=== PATIENT | female | born 1960 | race Caucasian/White ===

== ENCOUNTER 2021-09-21 17:04 | Observation (INO) | payer MEDICAID, SELFPAY ==
[2021-09-21] VITALS (8 sets, daily range): BP systolic 97–147; BP diastolic 57–86; PULSE 59–75; RESP 16–18; TEMP 36.6–36.8; O2SAT 96–99; BMI 40.2; BMI 43.8
--- NOTE | 2021-09-21 17:37 | CTR_ITS ---
PROCEDURE INFORMATION: Exam: CT Head Without Contrast Exam date and time: 09/21/2021 5:59 PM Age: 61 years old Clinical indication: Other: Near syncope TECHNIQUE: Imaging protocol: Computed tomography of the head without contrast. Radiation optimization: All CT scans at this facility use at least one of these dose optimization techniques: automated exposure control; mA and/or kV adjustment per patient size (includes targeted exams where dose is matched to clinical indication); or iterative reconstruction. COMPARISON: No relevant prior studies available. RADIATION DOSE METRICS: Total DLP (mGy-cm): 964.19 FINDINGS: Brain: Mild periventricular white matter chronic microvascular changes are noted. No hemorrhage or evidence of acute infarction. Cerebral ventricles: No ventriculomegaly. Paranasal sinuses: Visualized sinuses are unremarkable. No fluid levels. Mastoid air cells: Left mastoiditis is noted. Bones/joints: Unremarkable. No acute fracture. Soft tissues: Unremarkable. CT/CT head wo con* [id number] IMPRESSION: 1. No acute intracranial abnormality. 2. Left mastoiditis.
--- NOTE | 2021-09-21 17:37 | ECG_ITS ---
[facility] Test Date: 2021-09-21 Pat Name: Skylar Metcalf Department: Room: Gender: Female Supervisor Claims: : 1960 Requested By: Brenton Prescott Order Number: [id number] Manrique MD: Navid Valderrama M.D. Measurements Intervals [place] Rate: 54 P: 56 NM: 161 QRS: 81 QRSD: 86 T: 53 QT: 434 QTc: 412 Interpretive Statements SINUS BRADYCARDIA No previous ECG available for comparison Electronically Signed On 09-21-2021 22:46:51 CDT by Navid Valderrama M.D. [id number]
--- NOTE | 2021-09-21 17:39 | W.ED.GENADLT ---
HPI - General Adult General: Chief complaint: General Medical Stated complaint: weakness, passed out Time Seen by Provider: 09/21/21 17:06 History of Present Illness: HPI: [61]yo patient w/ hx of DVT on eliquis, non-hodgkin's lymphoma in remission, prior uterine cancer presenting after an episode of syncope lasting for 3-5 minutes about 45 minutes ago. Patient was holding her dog and johnson outside when she almost passed out. The incident was witnessed by the patient?s daughter denies patient had any LOC. Patient was noted to be intermittently lightheaded. Patient was also observed to be very pale. Patient tells me that she has a history of recurrent lightheadedness but this is the worst episode that she has had in a long time. Patient reports multiple episode of lightheadedness earlier this week. Patient could not recall the incident but denies any post-ictal confusion, tongue biting or bladder/bowel incontinence. Patient denies any prior hx of syncope in the past. No associated symptoms of chest pain, shortness of breath, palpitations or focal weakness right before the incident. No family hx of sudden cardiac or unexplained . Onset: 45 minutes ago Duration: ongoing Location: streets Severity: moderate Associated symptoms: Deny chest pain, dyspnea, nausea, rash, palpitations or vomiting Review of Systems Const: Denies: fever(s) or chills Eyes: Denies: change in vision ENMT: Denies: mouth pain Card: Denies: chest pain or palpitations Resp: Denies: dyspnea or non-productive cough GI: Denies: abdominal pain, nausea, vomiting or diarrhea : Denies: dysuria Musc: Denies: extremity pain Skin/Breast: Denies: rash or new lesions Neuro: Reports: other (+light-headedness); Denies: weakness in extremities Psych: Reports: other (Normal mood) Damien/Lymph: Denies: easy bruising PFSH ED PFSH: Medical History DVT (deep venous thrombosis) Dyslipidemia HTN (hypertension) Non-Hodgkin lymphoma Uterine cancer Surgical History S/P cholecystectomy Family History Other Unknown if patient has history of cardiac disorders Social History Smoking and tobacco status: current every day smoker Alcohol intake: never Substance/Drug Use: current Other substance/drug use details: +marijuana Physical Exam Const: COMMON NORMALS: alert HENMT: COMMON NORMALS: atraumatic HEAD & SCALP: atraumatic MOUTH: moist mucous membranes not abnormal Eye: COMMON NORMALS: EOMs intact bilaterally and conjunctivae normal CONJUNCTIVA: Yes conjunctivae normal Neck/C-Spine: COMMON NORMALS: full ROM and supple Resp: COMMON NORMALS: normal respiratory effort and clear to auscultation bilaterally AUSCULTATION: clear to auscultation bilaterally Cardio: COMMON NORMALS: regular rate RATE: regular rate GI: COMMON NORMALS: Soft to palpation and non-tender PALPATION: Yes Soft to palpation Extremity: COMMON NORMALS: full ROM Neuro: SENSORIUM/ORIENTATION: Yes alert MOTOR EXAM: No Abnormal motor strength present and Other motor observations present (no focal motor deficits) OTHER: Mental status? Awake, alert, and oriented to self, year, month, location, and situation.? Following simple axial and appendicular commands.? Has appropriate fund of knowledge, comprehension, and insight.? Able to recall and understands pertinent aspects of medical history and current treatment status.? ? Language? Speech is fluent without word-finding difficulties.? Intact naming, expression, healthcare receptionist, and repetition.? ? Cranial nerves? 2,3,4,6: PERRL, EOMI with no nystagmus. 5: Intact sensation to light touch, symmetric? 7: Smile symmetrical, no facial droop.? 8: Hearing grossly intact.? 9,10: Normal palate movement.? 11: Normal strength in trapezius bilaterally 12: Tongue protrudes midline.? ? Motor examination? Normal bulk & tone. Strength as follows (R/L): Delts (5/5), Biceps (5/5), Triceps (5/5), Wrist ext (5/5), hip flexors (5/5), plantarflexors (5/5), dorsiflexors (5/5). Sensation? Light Touch: Grossly intact and equal in upper and lower extremities bilaterally? Romberg: Negative.? Distal joint position sense intact ? Coordination? Dgtgma-gc-ixvh-finger movements intact without dysmetria or past-pointing.? Rapid fingertaps: preserved amplitude without decriment.? No tremor, myoclonus or truncal ataxia.? ? Gait/stance? Steady, normal narrow base gait with appropriate arm swing and turning.? Tandem gait without hesitation or loss of balance. Psych: COMMON NORMALS: speech normal SPEECH: Yes normal speech MOOD & AFFECT: Yes euthymic mood Course Vital Signs: Vital signs: Vital Signs Temperature 97.6 F 09/22/21 07:08 Pulse Rate 69 09/22/21 07:33 Respiratory Rate 16 09/22/21 07:33 Blood Pressure 120/75 09/22/21 07:08 Pulse Oximetry 94 09/22/21 07:33 MDM - General Adult Medical Decision Making [61]yo patient w/ hx of DVt on eliquis, non-hodgkin's lymphoma in remission presenting to the ED with Syncope. No association with chest pain, dyspnea, palpitations, or focal neurological deficits. HDS Neuro intact. Fingerstick wnl. Given history, exam and workup, presentation not consistent with seizures given a short time course, no postictal state, no seizure activity. Low suspicion for acute neurologic catastrophes to include ICH given lack of trauma, risk factors for bleeding diathesis, or neurogenic causes of syncope. Low suspicion for vascular catastrophes to include PE, thoracic aortic dissection, AAA rupture. Workup: EKGx 2, CBC, BMP, Troponin x 2, CT head Intervention: IVF, Serial reevaluation, telemetry, PO challenge Findings: EKG: No e/o STEMI. No evidence of Brugada?s sign, delta wave, epsilon wave, significantly prolonged QTc, HOCM or malignant arrhythmia. [8:15pm] part within normal limit. EKG with nonischemic. Patient received 1 L of NS. Patient continues to have intermittent lightheadedness. CT head negative for any acute finding. Given the prolonged duration of the neuro syncope episode and increased frequency of recurrent syncope x1 week, patient will be admitted to hospital for structural cardiac evaluation / cardiac monitoring. Disposition: admission for structural cardiac evaluation Lab Data : 09/22/21 03:05 09/22/21 03:[address] 09/21/21 17:37 IMPRESSION: 1. No acute intracranial abnormality. 2. Left mastoiditis. Laboratory Results WBC 7.1 10^3/uL (4.0-10.0) 09/21/21 18: RBC 4.24 10^6/uL (4.1-5.3) 09/21/21 18: Hgb 12.4 g/dL (11.5-15.3) 09/21/21 18: Hct 39.5 % (37.0-47.0) 09/21/21 18: MCV 93.2 fl (81-99) 09/21/21 18: MCH 29.2 pg (28.0-34.0) 09/21/21 18: MCHC 31.4 g/dL (30.0-36.0) 09/21/21: RDW 12.1 % (12.1-15.1) 09/21/21 18: Plt Count 183 10^3/cmm (130-400) 09/21/21 18: MPV 10.1 fL (7.4-10.4) 09/21/21 18: Neut % (Auto) 64.1 % 09/21/21 18: Lymph % (Auto) 23.5 % 09/21/21 18: [place] % (Auto) 10.6 % 09/21/21 18: Eos % (Auto) 0.8 % 09/21/21 18: Baso % (Auto) 0.7 % 09/21/21 18: Neut # (Auto) 4.57 10^3/uL (1.8-7.7) 09/21/21 18: Lymph # (Auto) 1.7 10^3/uL (0.8-4.8) 09/21/21 18: [place] # (Auto) 0.8 10^3/uL (0.2-0.9) 09/21/21 18: Eos # (Auto) 0.1 10^3/uL (0.0-0.8) 09/21/21 18: Baso # (Auto) 0.1 10^3/uL (0.0-0.1) 09/21/21 18: Nucleated RBC % (auto) 0 % 09/21/21 18: Nucleated RBCs # 0.0 /100WBC 09/21/21 18:26 Sodium 140 mmol/L (136-145) 09/21/21 19:18 Potassium 4.2 mmol/L (3.5-5.1) 09/21/21 19:18 Chloride 105 mmol/L (98-107) 09/21/21 19:18 Carbon Dioxide 25 mmol/L (22-29) 09/21/21 19:18 Anion Gap 14.2 (5-19) 09/21/21 19:18 BUN 18 mg/dL (8-23) 09/21/21 19:18 Creatinine 1.0 mg/dL (0.5-0.9) H 09/21/21 19:18 GFR Calculation 56.2 mL/min (90-130) L 09/21/21 19:18 Glucose 103 mg/dL (65-115) 09/21/21 19:18 Calculated Osmolality 292 mOsm/kg (285-295) 09/21/21 19:18 Calcium 9.2 mg/dL (8.5-10.5) 09/21/21 19:18 Total Bilirubin 0.4 mg/dL (0.15-1.2) 09/21/21 19:18 AST 13 U/L (0-32) 09/21/21 19:18 ALT 10 U/L (0-33) 09/21/21 19:18 Alkaline Phosphatase 98 IU/L (35-105) 09/21/21 19:18 Troponin T Baseline 8 ng/L (0-10) 09/21/21 18:26 Troponin T 120 Minute 8.16 ng/L (0-10) 09/21/21 20:20 Delta Troponin T Not Reportable 09/21/21 20:20 Total Protein 6.0 g/dL (6.6-8.7) L 09/21/21 19:18 Albumin 4.3 g/dL (3.5-5.2) 09/21/21 19:18 Globulin 1.7 g/dL (1.3-4.6) 09/21/21 19:18 Lipase 29 U/L (13-60) 09/21/21 19:18 TSH 1.09 uIU/mL (0.27-4.20) 09/21/21 20:20 Imaging Data Other Imaging: Radiologist's impression: [address] [place] [address] CT Scan Report Signed Patient: Skylar Metcalf Unit #: [id number] : 1960 Age/Sex: 61 / F ADM Date: 09/21/21 Loc: ER Room/Bed: Attending Dr: Ordering Provider/Ordering MD: Brenton Prescott MD Date of Service: 09/21/21 Procedure(s): CT head wo con* [id number] Accession Number(s): [id number] Report Number: [id number] PROCEDURE INFORMATION: Exam: CT Head Without Contrast Exam date and time: 09/21/2021 5:59 PM Age: 61 years old Clinical indication: Other: Near syncope TECHNIQUE: Imaging protocol: Computed tomography of the head without contrast. Radiation optimization: All CT scans at this facility use at least one of these dose optimization techniques: automated exposure control; mA and/or kV adjustment per patient size (includes targeted exams where dose is matched to clinical indication); or iterative reconstruction. COMPARISON: No relevant prior studies available. RADIATION DOSE METRICS: Total DLP (mGy-cm): 964.19 FINDINGS: Brain: Mild periventricular white matter chronic microvascular changes are noted. No hemorrhage or evidence of acute infarction. Cerebral ventricles: No ventriculomegaly. Paranasal sinuses: Visualized sinuses are unremarkable. No fluid levels. Mastoid air cells:? Left mastoiditis is noted. Bones/joints: Unremarkable. No acute fracture. Soft tissues: Unremarkable. CT/CT head wo con* [id number] IMPRESSION:? 1. No acute intracranial abnormality. 2. Left mastoiditis. ? Dictated By: Chris Agosto MD Signed By: Chris Agosto MD Signed Date/Time: 09/21/21 1843 DD/ 1759 Discharge Plan Discharge Patient Disposition: Admitted As Inpatient Admit Provider: Elvin Lujan Clinical Impression: Light headedness Condition: Stable Coding Level of Care Code ED Recycling Crew Supervisor for Chg Fwd Exam Comprehensive
[2021-09-21] MEDS: sodium chloride 0.9% 1,000 ML 999 ML IV (18:09)
--- NOTE | 2021-09-21 18:09 | PC.PHAR ---
pt pharmacy is closed, pt is unable to verify many medications and guessed on her strengths and dosing. Patient's friend was able to verify some medications as well.
[2021-09-21 18:31] LABS: Basophils # 0.1 10^3/uL (0.0-0.1); Basophils % 0.7 %; Eosinophils # 0.1 10^3/uL (0.0-0.8); Eosinophils % 0.8 %; Hematocrit 39.5 % (37.0-47.0); Hemoglobin 12.4 g/dL (11.5-15.3); Lymphocytes # 1.7 10^3/uL (0.8-4.8); Lymphocytes % 23.5 %; Mean Corpuscular HGB Conc 31.4 g/dL (30.0-36.0); Mean Corpuscular Hemoglobin 29.2 pg (28.0-34.0); Mean Corpuscular Volume 93.2 fl (81-99); Mean Platelet Volume 10.1 fL (7.4-10.4); Monocytes # 0.8 10^3/uL (0.2-0.9); Monocytes % 10.6 %; Neutrophils # 4.57 10^3/uL (1.8-7.7); Neutrophils % 64.1 %; Nucleated Red Blood Cells % 0 %; Platelet Count 183 10^3/cmm (130-400); Red Blood Count 4.24 10^6/uL (4.1-5.3); Red Cell Distribution Width 12.1 % (12.1-15.1); White Blood Count 7.1 10^3/uL (4.0-10.0)
[2021-09-21 18:49] LABS: Troponin(5th) Baseline 8 ng/L (0-10)
--- NOTE | 2021-09-21 19:37 | ECG_ITS ---
[facility] Test Date: 2021-09-21 Pat Name: Skylar Metcalf Department: Room: Gender: Female Neonatal Social Worker: : 1960 Requested By: Brenton Prescott Order Number: [id number] Burton MD: Navid Valderrama M.D. Measurements Intervals [place] Rate: 56 P: 62 TN: 154 QRS: 69 QRSD: 82 T: 50 QT: 418 QTc: 405 Interpretive Statements SINUS BRADYCARDIA Compared to ECG 09/21/2021 18:37:50 No significant changes Electronically Signed On 09-21-2021 22:50:43 CDT by Navid Valderrama M.D. [id number]
[2021-09-21 19:43] LABS: Alanine Aminotransferase 10 U/L (0-33); Albumin Level 4.3 g/dL (3.5-5.2); Alkaline Phosphatase 98 IU/L (35-105); Anion Gap 14.2 (5-19); Aspartate Amino Transferase 13 U/L (0-32); Blood Urea Nitrogen 18 mg/dL (8-23); Calcium 9.2 mg/dL (8.5-10.5); Carbon Dioxide 25 mmol/L (22-29); Chloride 105 mmol/L (98-107); Globulin 1.7 g/dL (1.3-4.6); Glomerular Filtration Rate 56.2 mL/min (90-130); Glucose 103 mg/dL (65-115); Lipase 29 U/L (13-60); Osmolality Calculated 292 mOsm/kg (285-295); Potassium 4.2 mmol/L (3.5-5.1); Sodium 140 mmol/L (136-145); Total Bilirubin 0.4 mg/dL (0.15-1.2)
--- NOTE | 2021-09-21 20:23 | P.HP_ITS ---
Providers/Chief Complaint Chief Complaint: weakness, passed out History of Present Illness Skylar Metcalf is a 61 year old female who carries history of uterine cancer, non- Hodgkin's lymphoma currently in remission, active smoker, presented for recurrent episodes of presyncopal events. Patient is stating that since her cancer treatment she has been experiencing dizzy spells for quite some time, her dizzy spells are not new, today she was having barbecue with her family outside when he started noticing tinnitus, tunnel vision, heaviness and lightheadedness while she was sitting, she did not pass out, she experienced sweating as well, she did not experience any chest pain, shortness of breath, nausea or vomiting. Her symptoms persisted for about 3 to 4 minutes. She did not experience any strokelike features. Because of the symptoms she decided to come to the hospital for further evaluation Patient is stating that she can always tell when she is about to get the symptoms, she is endorsing tinnitus without headaches & weight loss which is intentional, sometimes her dizziness gets worse with change of head position but at this symptom is not persistent. She also describes her dizziness as lightheadedness. She never had any Holter monitoring done in the past, no history of coronary disease MA or CHF. No history of A. fib or tachyarrhythmias. She does take metoprolol for her hypertension, she carries history of DVT which she takes Eliquis. At the time of my evaluation NIH 0, she is afebrile, hemodynamically stable, no signs of dizziness, she is about to eat her dinner, blood pressure systolic 122 heart rate fluctuated between 58-66/min, sinus rhythm, Hospital service was requested to evaluate her for bradycardia for presyncopal events He has already received fluids, will do orthostatics anyhow Requested echo and carotid Doppler Cardiac monitoring overnight Review of Systems Const: Denies: fever(s) Eyes: Denies: change in vision ENMT: Denies: throat pain Card: Denies: chest pain Resp: Denies: dyspnea GI: Denies: abdominal pain : Denies: flank pain Musc: Denies: neck pain Skin/Breast: Denies: rash Neuro: Reports: dizziness Psych: Denies: anxiety Endo: Denies: polyuria Damien/Lymph: Denies: easy bruising All/Imm: Denies: urticaria Medications/Allergies Home Medications Medication Instructions Recorded Confirmed Last Taken Type albuterol sulfate 90 mcg/actuation 2 puff INHALATION QID PRN 09/21/21 09/21/21 Unknown History aerosol inhaler amlodipine 10 mg tablet 10 mg PO DAILY 09/21/21 09/21/21 09/21/21 History apixaban 5 mg tablet (Eliquis) 5 mg PO BID 09/21/21 09/21/21 09/21/21 History atorvastatin 20 mg tablet 20 mg PO DAILY 09/21/21 09/21/21 09/21/21 History ipratropium 20 mcg-albuterol 100 1 puff INHALATION DAILY 09/21/21 09/21/21 09/21/21 History mcg/actuation mist for inhalation (Combivent Respimat) ipratropium bromide 17 1 puff INHALATION QID PRN 09/21/21 09/21/21 Unknown History mcg/actuation HFA aerosol inhaler lorazepam 1 mg tablet 1 mg PO DAILY PRN 09/21/21 09/21/21 Unknown History losartan 25 mg tablet 25 mg PO DAILY 09/21/21 09/21/21 09/21/21 History metoprolol tartrate 50 mg tablet 50 mg PO BID 09/21/21 09/21/21 09/21/21 History omeprazole 20 mg capsule,delayed 20 mg PO BID 09/21/21 09/21/21 09/21/21 History release Allergies Allergy/AdvReac Type Severity Reaction Status Date / Time bee venom protein (honey bee) Allergy ALGY-Anaphy Verified 09/21/21 17:16 laxis morphine Allergy ADR-Vomitin Verified 09/21/21 17:15 g Penicillins Allergy Unknown Verified 09/21/21 17:16 PFSH Acute PFSH: Medical History DVT (deep venous thrombosis) Dyslipidemia HTN (hypertension) Non-Hodgkin lymphoma Uterine cancer Surgical History S/P cholecystectomy Family History Other Unknown if patient has history of cardiac disorders Social History Smoking and tobacco status: current every day smoker Alcohol intake: never Substance/Drug Use: current Other substance/drug use details: +marijuana Vitals/I&O/Wt Last Vital Signs Temp 98.2 F 09/21/21 17:52 Pulse 60 09/21/21 18:45 Resp 16 09/21/21 18:45 BP 125/61 09/21/21 18:45 Pulse Ox 96 09/21/21 18:45 Weight last 48 hrs Weight 99.79 kg Physical Exam Narrative: Very pleasant cooperative female No acute distress S1, S2 sinus bradycardia Saturating well on room air Afebrile Abdomen soft no tenderness No signs of edema No signs of heart failure No audible stridor or wheezing Saturating well on room air EOMI, PERRLA Data : 09/21/21 18:26 09/21/21 19:18 A&P Assessment and plan (1) Pre-syncope: Status: Acute (2) Light headedness: Status: Acute (3) Tinnitus: Status: Acute (4) DVT (deep venous thrombosis): Status: Acute Plan Presyncope Patient describing her dizziness as lightheadedness Cardiac monitoring overnight Currently she is in sinus rhythm, bradycardia noted Might need Holter monitoring at the time of discharge Check electrolytes, magnesium, TSH Echo and carotid Doppler in the morning NIH 0 She is also endorsing tinnitus, intentional weight loss, M?ni?re's disease? Full code Cardiac diet She has history of DVT for which she takes Eliquis I will hold her metoprolol for now for her bradycardia Hypertension: Currently she is normotensive Am anticipating she will be able to get discharged within the next 24 hours Non-Hodgkin's lymphoma in remission I will request records from [facility] She has recently moved to [place] in June Person to be notified from the family, adair [phone] Attestations Medical Necessity Statement*: Anticipating discharge within 48 hours need work-up for presyncopal events Time Spent in Patient Care: 40mins Coding Level of Care Code Acute Refrigeration Unit Repairer for Jeannette Vela Diagnoses Pre-syncope R55 Light headedness R42 Tinnitus H93.19 DVT (deep venous thrombosis) I82.409
[2021-09-21 20:51] LABS: Troponin 5 2HR 8.16 ng/L (0-10)
[2021-09-21] MEDS: sodium chloride 0.9% 1,000 ML 75 ML IV (21:36)
[2021-09-21 22:24] LABS: Thyroid Stimulating Hormone 1.09 uIU/mL (0.27-4.20)
[2021-09-21] MEDS: fixodent 39 gm Tube 1 APPLIC DENTAL (22:58)
[2021-09-22] VITALS (11 sets, daily range): BP systolic 87–140; BP diastolic 62–82; PULSE 58–87; RESP 16–18; TEMP 36.4–36.8; O2SAT 93–96
--- NOTE | 2021-09-22 00:02 | USCV_ITS ---
Metcalf Skylar Age: 61 Gender: F : 1960 Exam Date: 09/22/2021 05:52 Ordering Phys: Elvin Lujan MD Technologist: ESTELLA [place] [facility] [place]: SYNCOPE BP: 134 / 78 HR: 60 Rhythm: Sinus Technical Quality: Adequate MEASUREMENTS (Male / Female) Normal Values 2D ECHO LV Diastolic Diameter PLAX 5.1 cm 4.2 - 5.9 / 3.9 - 5.3 cm LV Systolic Diameter PLAX 3.8 cm IVS Diastolic Thickness 1.1 cm 0.6 - 1.0 / 0.6 - 0.9 cm IVS Systolic Thickness 1.1 cm LVPW Diastolic Thickness 1.0 cm 0.6 - 1.0 / 0.6 - 0.9 cm LVPW Systolic Thickness 1.5 cm RV Chamber Size 2.7 cm LVOT Diameter 2.0 cm LV Ejection Fraction 2D Teich 50.9 % LV Ejection Fraction MOD 2C 59.6 % LV Ejection Fraction 2C AL 60.5 % LA Diameter 3.2 cm LA Width 3.3 cm LA Height 4.5 cm RA Width 3.2 cm RA Height 3.9 cm Aorta at Sinotubular Diameter 2.5 cm IVC Diameter 1.3 cm M-MODE Aortic Annulus Diameter 2.7 cm LA Ao Ratio MM 1.1 MV E Point Septal Separation 0.5 cm DOPPLER AV Peak Velocity 150.0 cm/s LVOT Peak Velocity 131.0 cm/s AV Area Cont Eq vti 2.6 cm squared AV Area Cont Eq pk 2.8 cm squared MV Area PHT 4.1 cm squared Mitral E to A Ratio 1.2 MV E' Velocity 56.5 cm/s Mitral E to MV E' Ratio 8.2 Mitral E to LV E' Lateral Ratio 9.3 Mitral E to LV E' Septal Ratio 7.4 TV Peak E Velocity 49.0 cm/s Right Atrial Pressure 3.0 mmHg PV Peak Velocity 101.0 cm/s RV Acceleration Time 0.1 s RV Ejection Time 0.4 s RV AcT/ET 0.3 FINDINGS Left Ventricle Normal left ventricular size,. LV systolic function is normal with EF of 55-60%. No regional wall motion abnormalities. Diastolic function is normal Right Ventricle The right ventricle is normal in size and function. Right Atrium The right atrium is normal in size. Left Atrium The left atrium is normal in size. Mitral Valve Structurally normal mitral valve without significant stenosis or prolapse. There is trace mitral regurgitation. Aortic Valve Structurally normal aortic valve without significant sclerosis or stenosis. There is no aortic regurgitation. Tricuspid Valve Structurally normal tricuspid valve without significant stenosis or regurgitation. Insufficient TR jet to calculate RVSP Pulmonic Valve Structurally normal pulmonic valve without significant stenosis. There is no pulmonic regurgitation. Pericardium Normal pericardium without effusion. Aorta Normal ascending aorta dimension. CONCLUSIONS LV systolic function is normal with EF of 55-60% Diastolic function is normal Trace mitral regurgitation No comparison studies are avialable Kev Givens MD (Electronically Signed) Final Date: 23 Sep 2021 11:58 S
--- NOTE | 2021-09-22 00:02 | USCV_ITS ---
Dixon Skylar Age: 61 Gender: F : 1960 Exam Date: 09/22/2021 00:54 Ordering Phys: Elvin Lujan MD Technologist: Oneal Franklin [place]am Location[place] [facility] [place]ication: presyncope Risk Factors: Previous Vascular Surgery: Right Brachial BP: / Left Brachial BP: / Right Left Velocity (cm/s) Spectral Plaque Velocity (cm/s) Spectral Plaque Syst/Diast Broadening Syst/Diast Broadening 65.10/ 17.60 Prox CCA 63.20 / 16.20 49.60/ 14.50 Mid CCA 77.80 / 18.80 61.50/ 20.50 Distal CCA 82.00 / 23.10 58.50/ 18.80 Prox ICA 71.80 / 18.80 82.90/ 26.50 Mid ICA 72.60 / 23.90 81.20/ 31.60 Distal ICA 96.60 / 38.50 82.90 ECA 64.90 1.27 ICA/CCA 1.18 Antegrade Vertebral Retrograde 67.50/ 12.00 cm/s 28.20/ 28.20 cm/s Tri Subclavian Tri 89.70 80.50 CONCLUSIONS Right ICA stenosis <50%. Mild atheromatous plaque right carotid bulb/ICA. Left ICA stenosis <50%. Mild atheromatous plaque left carotid bulb/ICA. Normal antegrade Doppler flow noted in the right vertebral artery. Retrograde Doppler flow noted in the left vertebral artery suggestive of subclavian steal with monophasic subclavian waveform.. Jeronimo George MD (Electronically Signed) Final Date: 22 Sep 2021 10:43 S
[2021-09-22 04:24] LABS: Basophils # 0.1 10^3/uL (0.0-0.1); Basophils % 0.7 %; Eosinophils # 0.1 10^3/uL (0.0-0.8); Eosinophils % 1.2 %; Hematocrit 34.9 % (37.0-47.0); Hemoglobin 11.7 g/dL (11.5-15.3); Lymphocytes # 2.3 10^3/uL (0.8-4.8); Lymphocytes % 31.8 %; Mean Corpuscular HGB Conc 33.5 g/dL (30.0-36.0); Mean Corpuscular Hemoglobin 29.9 pg (28.0-34.0); Mean Corpuscular Volume 89.3 fl (81-99); Mean Platelet Volume 10.8 fL (7.4-10.4); Monocytes # 0.7 10^3/uL (0.2-0.9); Monocytes % 10.1 %; Neutrophils # 4.03 10^3/uL (1.8-7.7); Neutrophils % 55.9 %; Nucleated Red Blood Cells % 0 %; Platelet Count 178 10^3/cmm (130-400); Red Blood Count 3.91 10^6/uL (4.1-5.3); Red Cell Distribution Width 12.2 % (12.1-15.1); White Blood Count 7.2 10^3/uL (4.0-10.0)
[2021-09-22 04:42] LABS: Anion Gap 15.8 (5-19); Blood Urea Nitrogen 18 mg/dL (8-23); Carbon Dioxide 24 mmol/L (22-29); Chloride 108 mmol/L (98-107); Glomerular Filtration Rate 63.4 mL/min (90-130); Glucose 106 mg/dL (65-115); Magnesium 1.7 mg/dL (1.7-2.3); Osmolality Calculated 300 mOsm/kg (285-295); Potassium 3.8 mmol/L (3.5-5.1); Sodium 144 mmol/L (136-145)
[2021-09-22] MEDS: apixaban 5 mg Tablet PO (08:42)
[2021-09-22] MEDS: losartan 50 mg Tablet 25 MG PO (08:42)
[2021-09-22] MEDS: pantoprazole DR 40 mg Tablet PO (08:42)
[2021-09-22] MEDS: sodium chloride 0.9% 1,000 ML 75 ML IV (08:42)
[2021-09-22] MEDS: oxyCODONE-APAP 5-325 mg Tablet 0.5 TAB PO (09:56)
--- NOTE | 2021-09-22 10:42 | PC.CHAP ---
Pastoral Care Encounter/Spiritual Assessment Type of Contact [] Declined manufacturing engineer automotive visit [] Patient/Family/Request visit [] Outpatient visit [] Follow-up visit [] Physician referral [] Code/Alert [x] Routine visit [] Staff referral [] Actively dying [] Patient sleeping [] Family support [] [] Out of room [] Palliative care [] [] Receiving care in room [] Pre-surgical visit [] Trauma [] Long length of stay [] ICU visit [] Other: Relational/Emotional Strength [x] Patient feels connected with others/family/visitors/staff [] Distress [] Loneliness/isolation [] Abandonment Spirituality of Patient [x] Person of Astrid [x] Attends Restorationist of their Astrid [x] Believes in Prayer [] Reads Bible or Voodoo materials [] There are Spiritual issues to be addressed Breakdown Person Interventions [x] Prayer [x] Active listening [] Non-anxious presence [x] Spiritual/emotional support [] Crisis/trauma care [] Spiritual counseling [] Bereavement support [] Provided bereavement packet [] Provided Bible/devotional materials [] Provided toy/stuffed animal, coloring book to patient or family member [] Provided Communion [] Anointing/[place] [] Salvation [x] Completed spiritual assessment [] Other: Impact on Illness or Injury [] Angry [] Fearful [] Anxious [] Often cries [] Exhaustion [] Unable to work [] Unable to attend adventism [] Unable to walk/stand [] Unable to read [] Unable to drive [] Unable to eat/drink [] Unable to sleep [] Unable to be with family [] Patient intubated [] Other: Summary Time spent with patient 10 min
--- NOTE | 2021-09-22 14:30 | P.DS_ITS ---
Discharge Providers Date of Admission: 09/21/21 21:15 Date of Discharge: September 22, 2021 Attending Provider at Admission: Elvin Lujan MD Attending Provider at Discharge: Mendy Hale MD Diagnoses at Discharge Discharge Diagnosis (1) Pre-syncope: Status: Acute (2) Light headedness: Status: Acute (3) Tinnitus: Status: Acute (4) DVT (deep venous thrombosis): Status: Acute Reason for Visit Reason for Visit: weakness, passed out Brief History: As per Dr.Qamar Cheng Igor Metcalf is a 61 year old female who carries history of uterine cancer, non- Hodgkin's lymphoma currently in remission, active smoker, presented for recurr ent episodes of presyncopal events.? Patient is stating that since her cancer treatment she has been experiencing dizzy spells for quite some time, her dizzy spells are not new, today she was having barbecue with her family outside when he started noticing tinnitus, tunnel vision, heaviness and lightheadedness while she was sitting, she did not pass out, she experienced sweating as well, she did not experience any chest pain, shortness of breath, nausea or vomiting.? Her symptoms persisted for about 3 to 4 minutes.? She did not experience any strokelike features.? Because of the symptoms she decided to come to the hospital for further evaluation Patient is stating that she can always tell when she is about to get the symptoms, she is endorsing tinnitus without headaches & weight loss which is intentional, sometimes her dizziness gets worse with change of head position but at this symptom is not persistent.? She also describes her dizziness as lightheadedness.? She never had any Holter monitoring done in the past, no history of coronary disease [place] or CHF.? No history of A. fib or tachyarrhythmias. She does take metoprolol for her hypertension, she carries history of DVT which she takes Eliquis. At the time of my evaluation NIH 0, she is afebrile, hemodynamically stable, no signs of dizziness, she is about to eat her dinner, blood pressure systolic 122 heart rate fluctuated between 58-66/min, sinus rhythm, Hospital service was requested to evaluate her for bradycardia for presyncopal events He has already received fluids, will do orthostatics anyhow Requested echo and carotid Doppler Cardiac monitoring overnight Hospital Course Hospital Course Patient was admitted for presyncope. She states she has dizziness and lightheadedness for years and years and has had extensive work-up done in [place]. There was also an ENT consult that I saw where she has had vestibular testing done. Carotid Dopplers done. Echo also done. Patient has complaint of tinnitus. She was on metoprolol at home. She did have bradycardic episodes down to low 50s and periods of apnea during her sleep evidenced on telemetry. Other than this heart rate remained stable. Orthostatic vital signs were negative. She has also tried meclizine in the past. She states that this time her lightheadedness was worse and therefore she came to the ER. Patient was seen the next morning and felt really well. Symptoms had resolved. No atrial fibrillation or tachyarrhythmias seen on telemetry. Patient was discussed with the patient to discharge her on a Holter monitor and to follow-up with cardiology outpatient as she has never had a Holter monitor before. Patient was sent home and she will come in the next day to have Holter placed. Patient also given referral for ENT. Patient agrees with the plan and will be sent home on her usual home medication with the exception of beta-golden. I will stop her metoprolol at discharge. I discussed with her not to take it until she is seen by cardiology and the Holter results have been reviewed. Referral for sleep study was given to her to do as an outpatient. Physical Exam Narrative: Very pleasant cooperative female No acute distress S1, S2 sinus bradycardia Saturating well on room air Afebrile Abdomen soft no tenderness No signs of edema No signs of heart failure No audible stridor or wheezing Saturating well on room air EOMI, PERRLA Discharge Data Studies Completed and Pending Completed Studies During Hospitalization Category Date Time Status CT head wo con* [id number] Urgent Cat Scan 09/21/21 17:37 Completed CV carotid duplex BI* [id number] Routine Ultrasound 09/22/21 00:02 Completed Pending at discharge Category Date Time Status CV. echo complete* [id number] Routine Ultrasound 09/22/21 00:02 Taken Radiology Impressions Head CT 09/21/21 17:37 IMPRESSION: 1. No acute intracranial abnormality. 2. Left mastoiditis. Laboratory Results WBC 7.2 10^3/uL (4.0-10.0) 09/22/21 03:05 RBC 3.91 10^6/uL (4.1-5.3) L 09/22/21 03:05 Hgb 11.7 g/dL (11.5-15.3) 09/22/21 03:05 Hct 34.9 % (37.0-47.0) L 09/22/21 03:05 MCV 89.3 fl (81-99) 09/22/21 03:05 MCH 29.9 pg (28.0-34.0) 09/22/21 03:05 MCHC 33.5 g/dL (30.0-36.0) D 09/22/21 03:05 RDW 12.2 % (12.1-15.1) 09/22/21 03:05 Plt Count 178 10^3/cmm (130-400) 09/22/21 03:05 MPV 10.8 fL (7.4-10.4) H 09/22/21 03:05 Neut % (Auto) 55.9 % 09/22/21 03:05 Lymph % (Auto) 31.8 % 09/22/21 03:05 [place] % (Auto) 10.1 % 09/22/21 03:05 Eos % (Auto) 1.2 % 09/22/21 03:05 Baso % (Auto) 0.7 % 09/22/21 03:05 Neut # (Auto) 4.03 10^3/uL (1.8-7.7) 09/22/21 03:05 Lymph # (Auto) 2.3 10^3/uL (0.8-4.8) 09/22/21 03:05 [place] # (Auto) 0.7 10^3/uL (0.2-0.9) 09/22/21 03:05 Eos # (Auto) 0.1 10^3/uL (0.0-0.8) 09/22/21 03:05 Baso # (Auto) 0.1 10^3/uL (0.0-0.1) 09/22/21 03:05 Nucleated RBC % (auto) 0 % 09/22/21 03:05 Nucleated RBCs # 0.0 /100WBC 09/22/21 03:05 Sodium 144 mmol/L (136-145) 09/22/21 03:05 Potassium 3.8 mmol/L (3.5-5.1) 09/22/21 03:05 Chloride 108 mmol/L (98-107) H 09/22/21 03:05 Carbon Dioxide 24 mmol/L (22-29) 09/22/21 03:05 Anion Gap 15.8 (5-19) 09/22/21 03:05 BUN 18 mg/dL (8-23) 09/22/21 03:05 Creatinine 0.9 mg/dL (0.5-0.9) 09/22/21 03:05 GFR Calculation 63.4 mL/min (90-130) L 09/22/21 03:05 Glucose 106 mg/dL (65-115) 09/22/21 03:05 Calculated Osmolality 300 mOsm/kg (285-295) H 09/22/21 03:05 Calcium 9.0 mg/dL (8.5-10.5) 09/22/21 03:05 Magnesium 1.7 mg/dL (1.7-2.3) 09/22/21 03:05 Total Bilirubin 0.4 mg/dL (0.15-1.2) 09/21/21 19:18 AST 13 U/L (0-32) 09/21/21 19:18 ALT 10 U/L (0-33) 09/21/21 19:18 Alkaline Phosphatase 98 IU/L (35-105) 09/21/21 19:18 Troponin T Baseline 8 ng/L (0-10) 09/21/21 18:26 Troponin T 120 Minute 8.16 ng/L (0-10) 09/21/21 20:20 Delta Troponin T Not Reportable 09/21/21 20:20 Total Protein 6.0 g/dL (6.6-8.7) L 09/21/21 19:18 Albumin 4.3 g/dL (3.5-5.2) 09/21/21 19:18 Globulin 1.7 g/dL (1.3-4.6) 09/21/21 19:18 Lipase 29 U/L (13-60) 09/21/21 19:18 TSH 1.09 uIU/mL (0.27-4.20) 09/21/21 20:20 Vitals Last Vital Signs Temp 97.8 F 09/22/21 12:00 Pulse 69 09/22/21 12:00 Resp 18 09/22/21 12:00 BP 126/70 09/22/21 12:00 Pulse Ox 94 09/22/21 12:00 Discharge Plan Discharge Patient Disposition: Home Condition: Stable Prescriptions: Continued atorvastatin 20 mg Tablet 20 mg PO DAILY 0RF amlodipine 10 mg Tablet 10 mg PO DAILY 0RF losartan 25 mg Tablet 25 mg PO DAILY 0RF omeprazole 20 mg Capsule,Delayed Release(Dr/Ec) 20 mg PO BID 0RF lorazepam 1 mg Tablet 1 mg PO DAILY PRN (Reason: Anxiety) 0RF albuterol sulfate 90 mcg/actuation Hfa Aerosol Inhaler 2 puff INHALATION QID PRN (Reason: Shortness Of Breath) 0RF ipratropium bromide 17 mcg/actuation Hfa Aerosol Inhaler 1 puff INHALATION QID PRN (Reason: Shortness Of Breath) 0RF Eliquis 5 mg Tablet 5 mg PO BID 0RF Combivent Respimat 20-100 mcg/actuation Mist 1 puff INHALATION DAILY 0RF Rx Instructions: space evenly during waking hours Discontinued metoprolol tartrate 50 mg Tablet 50 mg PO BID 0RF Discharge Orders: Discharge Order (Routine); Ordered 09/22/21 Ordered By: Mendy Hale Other Ambulatory Orders: Sleep Study/Titration (Routine) Timeframe: 1 Week Facility: [facility] - Location: [facility] Ordered By: Mendy Hale Referrals: Fernando Benitez FNP-C [Nurse Practitioner] - 09/29/21 11:20 am (Patient will need a new PCP appointment @ [place] w/ first available @ [facility].) Kev Givens M.D [Physician] - 11/18/21 2:15 pm Gurjit Huerta MD [Physician] - 09/29/21 8:00 am (Tinnitus, lightheadedness, mastoiditis on CT) Discharge Diet: Cardiac Discharge Activity: Resume usual activity Patient Instructions: Syncope (GEN), Opioid Safety Activity Restrictions/Additional Instructions: Please return to the ER if lightheadedness recurs, if you pass out, have shortness of breath, chest pain or you feel your heart is beating faster than usual WILL GET HEART MONITOR ON WednesdaySEPTEMBER 23 AT 13:15 [facility] SCHEDULING WILL CALL WITH APPOINTMENT Discharge Attestations Time Spent in Discharge Care*: less than 30 min Quality Metrics Clinical Quality Measures [ No reported AMI, CVA or VTE this stay] Coding Level of Care Code Acute Chg FW DC note Diagnoses Pre-syncope R55 Light headedness R42 Tinnitus H93.19 DVT (deep venous thrombosis) I82.409
--- NOTE | 2021-10-09 16:13 | PM.MISC ---
Miscellaneous Note Purpose of Documentation: Sinus Pause Note: I received a call from holter monitor company that patient went into 3rd degree AV block and had sinus pause for 3.4 seconds. I discussed with Dr. Valderrama over the phone. I called patient as well and she said she was outside today and was experiencing lightheadedness and dizziness. At that moment however she was asleep and asymptomatic at this moment when talking on the phone. This episode happended around 2.45 PM as per holter monitor rep. I informed the patient of the results and advised her to go to the ER for evaluation. Patient agreed to come to ER in [place] for further workup. Once patient arrives, cardiology will need to be consulted. (Dr. Valderrama aware of patient).
== END 2021-09-22 16:21 | disposition home or self-care (01) ==
LOC: ER 17:46 → MEDSURG 09-22 06:21
PROVIDERS: Admitting Provider Internal Medicine; Emergency Provider Emergency Medicine; Visit Provider Internal Medicine
DX: R55 Syncope and collapse (principal); R42 Dizziness and giddiness; H93.19 Tinnitus, unspecified ear; I82.409 Acute embolism and thrombosis of unspecified deep veins of unspecified lower extremity; G47.33 Obstructive sleep apnea (adult) (pediatric); I65.23 Occlusion and stenosis of bilateral carotid arteries; E78.5 Hyperlipidemia, unspecified; I10 Essential (primary) hypertension; Z85.42 Personal history of malignant neoplasm of other parts of uterus; F17.200 Nicotine dependence, unspecified, uncomplicated
CPT/HCPCS: 36415; 70450; 80048; 80053; 83690; 83735; 84443; 84484; 85025; 93005; 93306; 93880; 96360; 96361; 99285; G0378; J7030

== ENCOUNTER 2021-10-09 17:18 | Emergency (ER) | payer MEDICAID, SELFPAY ==
[2021-10-09 17:29] VITALS: BP 128/86; PULSE 90; RESP 16; TEMP 37.1; O2SAT 96
--- NOTE | 2021-10-09 17:55 | ECG_ITS ---
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 Measurements Intervals [place] Rate: 90 P: 73 TX: 156 QRS: 77 QRSD: 82 T: 65 QT: 351 QTc: 430 Interpretive Statements SINUS RHYTHM Compared to ECG 09/21/2021 19:35:32 Sinus bradycardia no longer present Electronically Signed On 10-09-2021 22:24:16 CDT by Kev Givens M.D. [id number]
--- NOTE | 2021-10-09 17:55 | XRR_ITS ---
PROCEDURE INFORMATION: Exam: XR Chest Exam date and time: 10/09/2021 6:02 PM Age: 61 years old Clinical indication: Dyspnea TECHNIQUE: Imaging protocol: XR of the chest. Views: 1 view. COMPARISON: No relevant prior studies available. FINDINGS: Lungs: Unremarkable. No consolidation. Pleural spaces: Unremarkable. No pleural effusion. No pneumothorax. Heart/Mediastinum: Unremarkable. No cardiomegaly. Bones/joints: Unremarkable. XR/XR chest 1V portable [id number] IMPRESSION: No acute findings.
--- NOTE | 2021-10-09 18:22 | W.ED.GENADLT ---
HPI - General Adult General: Chief complaint: General Medical Stated complaint: Monitor says her heart stopped Time Seen by Provider: 10/09/21 18:16 Source: patient Mode of arrival: ambulatory Limitations: no limitations History of Present Illness: 61-year-old female who states she was called today by physician for an event report of her heart monitor. She was seen here weeks ago for near syncopal event has been wearing a heart monitor she does have follow-up with cardiology but has not seen them yet. States she is sleeping when it went off she states she been feeling fine otherwise she denies any chest pain or syncopal events today. Associated symptoms: Deny chest pain, dyspnea, headache(s), nausea, rash or vomiting Review of Systems Const: Denies: fever(s), chills, body aches or change in appetite Eyes: Denies: blurry vision or eye discomfort ENMT: Denies: throat pain or dental pain Card: Denies: chest pain Resp: Denies: dyspnea GI: Denies: abdominal pain, nausea, vomiting or diarrhea : Denies: dysuria Musc: Denies: neck pain or back pain Skin/Breast: Denies: rash Neuro: Denies: headache(s) Psych: Denies: depression Damien/Lymph: Denies: easy bruising All/Imm: Denies: urticaria PFSH ED PFSH: Medical History COPD (chronic obstructive pulmonary disease) DDD (degenerative disc disease), lumbar Diabetes mellitus with hyperglycemia, without long-term current use of insulin DVT (deep venous thrombosis) Dyslipidemia History of benign neoplasm of larynx History of DVT of lower extremity Right leg HTN (hypertension) Non-Hodgkin lymphoma age 57 Surgical History History of left oophorectomy age 16 due to CA related to Oral contraceptive History of tonsillectomy S/P cholecystectomy Family History Other CAD (coronary artery disease) Cancer Diabetes Hypertension Stroke Unknown if patient has history of cardiac disorders Denies family history of Dementia Social History Smoking and tobacco status: current every day smoker Second hand smoke exposure: No Smoking risk assessment/counseling performed?: Yes Alcohol intake: never Desire information about alcohol rehabilitation?: No Counseling given: No Desire information about substance/drug rehabilitation?: No Counseling given: No Adopted: No Caregiver/support person: No Lives independently: Yes Household members: friend(s) Housing: House Marital status: Unknown Number of children: 0 service: No Current occupational status: retired Pets and animals: Yes Pets & animals: cat(s) and dog(s) History of recent travel: No Current gender identity: Female Physical Exam Const: COMMON NORMALS: no acute distress, patient oriented x3 and healthy appearing HENMT: COMMON NORMALS: normocephalic and atraumatic HEAD & SCALP: normocephalic and atraumatic Eye: COMMON NORMALS: Equal, round and reactive pupils present and EOMs intact bilaterally PUPIL: Yes Equal, round and reactive pupils present Neck/C-Spine: COMMON NORMALS: full ROM and supple Chest: COMMONS NORMALS: normal inspection of the chest and normal palpation of entire chest wall Resp: COMMON NORMALS: normal respiratory effort, No retractions, No use of accessory muscles and clear to auscultation bilaterally AUSCULTATION: clear to auscultation bilaterally Cardio: COMMON NORMALS: regular rate, regular rhythm and No murmurs present (Cardio) RATE: regular rate RHYTHM: regular rhythm GI: COMMON NORMALS: Normal to inspection, nondistended, normoactive bowel sounds present, Soft to palpation, non-tender and no masses PALPATION: Yes Soft to palpation Extremity: COMMON NORMALS: normal to inspection and full ROM Neuro: COMMON NORMALS: patient oriented x3, moves all extremities and no focal motor deficits Psych: COMMON NORMALS: mental status grossly normal, Normal thought process present and cooperative THOUGHT PROCESS: Normal thought process present Skin: COMMON NORMALS: no rashes or lesions noted and no wounds GENERAL SKIN EXAM: no rashes or lesions noted Course Vital Signs: Vital signs: Vital Signs Temperature 98.8 F 10/09/21 17:29 Pulse Rate 82 10/09/21 19:39 Respiratory Rate 18 10/09/21 19:39 Blood Pressure 117/75 10/09/21 19:39 Pulse Oximetry 96 10/09/21 19:39 [facility] - General Adult Medical Decision Making Patient presents here with an event monitor showing a 3-second pause I spoke to cardiology Dr. Valderrama who reviewed the monitor event he feels patient stable for discharge is having while sleeping she has not had any symptoms she is well-appearing here lab works normal here she is to follow-up with cardiology and return if worsening she understands agrees to plan. Lab Data : 10/09/21 18:35 10/09/21 18:35 Radiology Impressions Chest X-Ray 10/09/21 17:55 IMPRESSION: No acute findings. Laboratory Results WBC 6.5 10^3/uL (4.0-10.0) 10/09/21 18:35 RBC 4.16 10^6/uL (4.1-5.3) 10/09/21 18:35 Hgb 12.2 g/dL (11.5-15.3) 10/09/21 18:35 Hct 38.2 % (37.0-47.0) 10/09/21 18:35 MCV 91.8 fl (81-99) 10/09/21 18:35 MCH 29.3 pg (28.0-34.0) 10/09/21 18:35 MCHC 31.9 g/dL (30.0-36.0) 10/09/21 18:35 RDW 12.3 % (12.1-15.1) 10/09/21 18:35 Plt Count 199 10^3/cmm (130-400) 10/09/21 18:35 MPV 9.6 fL (7.4-10.4) 10/09/21 18:35 Neut % (Auto) 53.5 % 10/09/21 18:35 Lymph % (Auto) 35.2 % 10/09/21 18:35 [place] % (Auto) 8.8 % 10/09/21 18:35 Eos % (Auto) 1.2 % 10/09/21 18:35 Baso % (Auto) 1.1 % 10/09/21 18:35 Neut # (Auto) 3.45 10^3/uL (1.8-7.7) 10/09/21 18:35 Lymph # (Auto) 2.3 10^3/uL (0.8-4.8) 10/09/21 18:35 [place] # (Auto) 0.6 10^3/uL (0.2-0.9) 10/09/21 18:35 Eos # (Auto) 0.1 10^3/uL (0.0-0.8) 10/09/21 18:35 Baso # (Auto) 0.1 10^3/uL (0.0-0.1) 10/09/21 18:35 Nucleated RBC % (auto) 0 % 10/09/21 18:35 Nucleated RBCs # 0.0 /100WBC 10/09/21 18:35 Sodium 139 mmol/L (136-145) 10/09/21 18:35 Potassium 4.0 mmol/L (3.5-5.1) 10/09/21 18:35 Chloride 105 mmol/L (98-107) 10/09/21 18:35 Carbon Dioxide 23 mmol/L (22-29) 10/09/21 18:35 Anion Gap 15.0 (5-19) 10/09/21 18:35 BUN 13 mg/dL (8-23) 10/09/21 18:35 Creatinine 0.8 mg/dL (0.5-0.9) 10/09/21 18:35 GFR Calculation 72.7 mL/min (90-130) L 10/09/21 18:35 Glucose 88 mg/dL (65-115) 10/09/21 18:35 Calculated Osmolality 288 mOsm/kg (285-295) 10/09/21 18:35 Calcium 9.2 mg/dL (8.5-10.5) 10/09/21 18:35 Magnesium 1.7 mg/dL (1.7-2.3) 10/09/21 18:35 Troponin T Baseline 7 ng/L (0-10) 10/09/21 18:35 EKG Data EKG 1: I personally reviewed and interpreted this EKG as follows: EKG interpretation date: 10/09/21 EKG interpretation time: 18:19 Interpretation: nsr hr [address] or t wave abnormalities qrs 82 qtc 399 Computer generated interpretation: Chest X-Ray 10/09/21 17:55 IMPRESSION: No acute findings. EKG 2: I personally reviewed and interpreted this EKG as follows: EKG interpretation date: 10/09/21 EKG interpretation time: 19:30 Interpretation: nsr hr [address] or t wave abnormalities qrs 79 qtc 410 Computer generated interpretation: Chest X-Ray 10/09/21 17:55 IMPRESSION: No acute findings. Discharge Plan Discharge Patient Disposition: Home Clinical Impression: Arrhythmia Qualifiers: Arrhythmia type: unspecified cardiac arrhythmia Qualified Code(s): I49.9 - Cardiac arrhythmia, unspecified Condition: Stable Prescriptions: No Action oxybutynin chloride 5 mg tablet 5 mg PO DAILY 0RF ondansetron 4 mg tablet,disintegrating 4 mg PO Q6H 0RF oxycodone-acetaminophen 5-325 mg tablet 1 tab PO Q8H PRN0RF metformin 500 mg tablet 500 mg PO DAILY 0RF budesonide-formoterol [Symbicort] 160-4.5 mcg/actuation HFA aerosol inhaler 2 puff inhalation BID 0RF cholestyramine (with sugar) 4 gram powder in packet PO 0RF lidocaine 5 % adhesive patch,medicated 3 patch topical DAILY 0RF Rx Instructions: leave on most painful area for up to 12 hrs ipratropium-albuterol 0.5 mg-3 mg(2.5 mg base)/3 mL solution for nebulization 3 ml inhalation Q6H PRN0RF albuterol sulfate 90 mcg/actuation HFA aerosol inhaler 2 puff INHALATION QID PRN (Reason: Shortness Of Breath) Qty: 8.5 5RF amlodipine 10 mg Tablet 10 mg PO DAILY 0RF losartan 25 mg Tablet 25 mg PO DAILY 0RF Eliquis 5 mg Tablet 5 mg PO BID 0RF atorvastatin 20 mg tablet 40 mg PO DAILY 0RF omeprazole 20 mg capsule,delayed release(DR/EC) 40 mg PO BID 0RF lorazepam 1 mg tablet 1 mg PO BID PRN (Reason: Anxiety) 0RF Discharge Orders: Discharge ED (Routine); Ordered 10/09/21 Ordered By: Mahi Mckeon Referrals: Navid Valderrama MD [Physician] - 1-3 days Discharge Diet: Advance as tolerated Discharge Activity: Resume usual activity Coding Level of Care Code ED Dust Collector Attendant for Jeannette Vela
[2021-10-09 18:32] VITALS: BP 109/85; PULSE 83; RESP 22; O2SAT 96
--- NOTE | 2021-10-09 18:33 | PC.NURSE ---
PT placed on continuous NIBP, SpO2, and CM
[2021-10-09 18:50] LABS: Basophils # 0.1 10^3/uL (0.0-0.1); Basophils % 1.1 %; Eosinophils # 0.1 10^3/uL (0.0-0.8); Eosinophils % 1.2 %; Hematocrit 38.2 % (37.0-47.0); Hemoglobin 12.2 g/dL (11.5-15.3); Lymphocytes # 2.3 10^3/uL (0.8-4.8); Lymphocytes % 35.2 %; Mean Corpuscular HGB Conc 31.9 g/dL (30.0-36.0); Mean Corpuscular Hemoglobin 29.3 pg (28.0-34.0); Mean Corpuscular Volume 91.8 fl (81-99); Mean Platelet Volume 9.6 fL (7.4-10.4); Monocytes # 0.6 10^3/uL (0.2-0.9); Monocytes % 8.8 %; Neutrophils # 3.45 10^3/uL (1.8-7.7); Neutrophils % 53.5 %; Nucleated Red Blood Cells % 0 %; Platelet Count 199 10^3/cmm (130-400); Red Blood Count 4.16 10^6/uL (4.1-5.3); Red Cell Distribution Width 12.3 % (12.1-15.1); White Blood Count 6.5 10^3/uL (4.0-10.0)
[2021-10-09 19:05] LABS: Blood Urea Nitrogen 13 mg/dL (8-23); Calcium 9.2 mg/dL (8.5-10.5); Carbon Dioxide 23 mmol/L (22-29); Chloride 105 mmol/L (98-107); Glomerular Filtration Rate 72.7 mL/min (90-130); Glucose 88 mg/dL (65-115); Magnesium 1.7 mg/dL (1.7-2.3); Osmolality Calculated 288 mOsm/kg (285-295); Sodium 139 mmol/L (136-145)
[2021-10-09 19:06] LABS: Troponin(5th) Baseline 7 ng/L (0-10)
[2021-10-09 19:39] VITALS: BP 117/75; PULSE 82; RESP 18; O2SAT 96
--- NOTE | 2021-10-09 19:55 | ECG_ITS ---
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 Measurements Intervals [place] Rate: 80 P: 78 [place]: 166 QRS: 79 QRSD: 79 T: 65 QT: 375 QTc: 433 Interpretive Statements SINUS RHYTHM Compared to ECG 10/09/2021 18:19:08 No significant changes Electronically Signed On 10-09-2021 22:26:54 CDT by Kev Givens M.D. [email or web address] [email or web address] Mobile Securitymercy health – [facility].[employer]/store/OM/[id number]
== END 2021-10-09 19:39 | disposition home or self-care (01) ==
PROVIDERS: Emergency Medicine; Emergency Provider Emergency Medicine
DX: I49.9 Cardiac arrhythmia, unspecified (principal); I10 Essential (primary) hypertension
CPT/HCPCS: 71045; 80048; 83735; 84484; 85025; 93005; 99284

== ENCOUNTER 2021-12-15 14:24 | Outpatient (CLI) | payer MEDICAID, SELFPAY ==
--- NOTE | 2021-12-15 15:00 | CT_ITS ---
WS: [id number] CT ANGIOGRAM CEREBRAL AND CAROTID ARTERIES HISTORY: Near syncope TECHNIQUE: CT angiogram is performed of the carotid and cerebral arteries. During arterial injection imaging is obtained from the skull vertex to the aortic arch in 1.25 mm imaging. Coronal and sagittal reformats are submitted. Additional multi planar reformats of the carotid and cerebral arteries are submitted, MIP imaging also reviewed. NASCET criteria utilized. [facility] at least one of these dose optimization techniques: automated exposure control; mA and/or kV adjust ment per patient size (includes targeted exams where dose is matched to clinical indication); or iter ative reconstruction. CONTRAST: Omnipaque 350; 95 mL IV. DLP: 584.34 mGy.cm COMPARISON: None available. Carotid Angiogram: Right carotid: Common carotid artery: Minimal plaque. No stenosis. Internal carotid artery: Small amount of calcified plaque and intimal thickening at the bifurcation. External carotid artery: Patent. Left carotid: Common carotid artery: Approximately 50% stenosis origin of the LEFT common carotid artery from the a rch. Small amount of calcified plaque. The remaining carotid arteries well-opacified. Internal carotid artery: No plaque or stenosis. External carotid artery: Patent. Right vertebral artery: Unremarkable. Left vertebral artery: Small caliber but patent. Subclavian arteries: No stenosis or significant abnormality. Upper thorax: Chronic emphysematous changes. Thyroid gland: Normal. Osseous structures: Unremarkable. CEREBRAL ANGIOGRAM: Intracranial vertebral arteries: Small caliber LEFT vertebral artery but it is patent. Normal size RI GHT vertebral artery is patent. Basilar artery: No significant stenosis or occlusion. No aneurysm. Intracranial Internal carotid arteries: No stenosis. Mild plaque through the cavernous sinuses. No oc clusions. Middle cerebral arteries: Normal. Anterior cerebral arteries and ACOM: Normal. Posterior cerebral arteries and PCOM's: Normal. Dural venous sinuses are normally enhancing. Mastoid air cells: Normal. Paranasal sinuses: Normal. Calvarium: Normal. CT/CT angio headneck* [id number] IMPRESSION: 1. No significant stenosis at the cervical carotid bifurcations. 2. Approximately 50% stenosis origin of the LEFT common carotid artery from th e arch. 3. Small caliber but patent LEFT vertebral artery. 4. Mild atherosclerosis intracranial carotid arteries to the cavernous sinuses .
[2021-12-15] MEDS: iohexol 350 mg/mL 100 mL Btl IV (15:58)
== END 2021-12-15 14:25 | disposition home or self-care (01) ==
LOC: RAD 14:25
PROVIDERS: PCP Nurse Practitioner; Visit Provider Internal Medicine Cardiovascular Disease
DX: R09.89 Other specified symptoms and signs involving the circulatory and respiratory systems (principal); R55 Syncope and collapse; I65.22 Occlusion and stenosis of left carotid artery
CPT/HCPCS: 70496; 70498

== ENCOUNTER → 2021-12-18 14:22 | Outpatient (BNVA) | payer MEDICAID, SELFPAY | PROVIDERS: PCP Nurse Practitioner; Visit Provider Anesthesiology Pain Medicine | DX: E11.65 Type 2 diabetes mellitus with hyperglycemia (principal) | CPT/HCPCS: 36416; 82962 ==

== ENCOUNTER 2021-12-23 20:00 | Outpatient (CLI) | payer MEDICAID, SELFPAY | END 2021-12-23 20:01 | disposition home or self-care (01) | LOC: SLEEP 12-24 07:45 | PROVIDERS: PCP Nurse Practitioner; Visit Provider Internal Medicine Cardiovascular Disease | DX: R40.0 Somnolence (principal); G47.33 Obstructive sleep apnea (adult) (pediatric) | CPT/HCPCS: 95810 ==

== ENCOUNTER → 2021-12-24 15:38 | Outpatient (BNVA) | payer MEDICAID, SELFPAY | PROVIDERS: PCP Nurse Practitioner; Visit Provider Nurse Practitioner | DX: G89.29 Other chronic pain (principal); M25.511 Pain in right shoulder | CPT/HCPCS: 73030 ==

== ENCOUNTER → 2021-12-31 14:25 | Outpatient (BNVA) | payer MEDICAID, SELFPAY | PROVIDERS: PCP Nurse Practitioner; Visit Provider Nurse Practitioner | DX: R30.0 Dysuria (principal) | CPT/HCPCS: 81003; 87077; 87086; 87184 ==

== ENCOUNTER → 2022-01-13 15:33 | Outpatient (BNVA) | payer BC, MEDICAID, SELFPAY | PROVIDERS: PCP Nurse Practitioner; Visit Provider Internal Medicine Cardiovascular Disease | DX: I48.91 Unspecified atrial fibrillation (principal); I48.92 Unspecified atrial flutter; Z79.01 Long term (current) use of anticoagulants; I65.29 Occlusion and stenosis of unspecified carotid artery; E78.5 Hyperlipidemia, unspecified; I10 Essential (primary) hypertension; Z86.718 Personal history of other venous thrombosis and embolism; E11.65 Type 2 diabetes mellitus with hyperglycemia; Z79.84 Long term (current) use of oral hypoglycemic drugs; G47.33 Obstructive sleep apnea (adult) (pediatric); F17.210 Nicotine dependence, cigarettes, uncomplicated | CPT/HCPCS: 99214 ==

== ENCOUNTER → 2022-02-09 13:53 | Outpatient (BNVA) | payer BC, MEDICAID, SELFPAY | PROVIDERS: PCP Nurse Practitioner; Visit Provider Nurse Practitioner Family | DX: R05.9 Cough, unspecified (principal); Z20.822 Contact with and (suspected) exposure to COVID-19 | CPT/HCPCS: 87426 ==

== ENCOUNTER → 2022-03-02 14:25 | Outpatient (BNVA) | payer BC, MEDICAID, SELFPAY | PROVIDERS: PCP Nurse Practitioner; Visit Provider Specialist | DX: M12.811 Other specific arthropathies, not elsewhere classified, right shoulder (principal) | CPT/HCPCS: 73030 ==

== ENCOUNTER 2022-03-09 20:00 | Outpatient (CLI) | payer BC, MEDICAID, SELFPAY | END 2022-03-09 20:01 | disposition home or self-care (01) | LOC: SLEEP 03-10 07:31 | PROVIDERS: PCP Nurse Practitioner; Visit Provider Internal Medicine Cardiovascular Disease | DX: G47.33 Obstructive sleep apnea (adult) (pediatric) (principal) | CPT/HCPCS: 95811 ==

== ENCOUNTER → 2022-03-16 10:50 | Outpatient (BNVA) | payer BC, MEDICAID, SELFPAY | PROVIDERS: PCP Nurse Practitioner; Visit Provider Nurse Practitioner | DX: J44.9 Chronic obstructive pulmonary disease, unspecified (principal); E11.65 Type 2 diabetes mellitus with hyperglycemia; Z86.718 Personal history of other venous thrombosis and embolism; M51.16 Intervertebral disc disorders with radiculopathy, lumbar region | CPT/HCPCS: 80053; 80061; 83036; 84443 ==

== ENCOUNTER → 2022-05-28 12:57 | Outpatient (BNVA) | payer BC, MEDICAID, SELFPAY | PROVIDERS: PCP Nurse Practitioner; Visit Provider Anesthesiology Pain Medicine | DX: E11.65 Type 2 diabetes mellitus with hyperglycemia (principal) | CPT/HCPCS: 36416; 82962 ==

== ENCOUNTER → 2022-06-18 13:20 | Outpatient (BNVA) | payer BC, MEDICAID, SELFPAY | PROVIDERS: PCP Nurse Practitioner; Visit Provider Nurse Practitioner | DX: E11.65 Type 2 diabetes mellitus with hyperglycemia (principal); E55.9 Vitamin D deficiency, unspecified | CPT/HCPCS: 80053; 81003; 82043; 82306; 83036; 84443; 85025 ==

== ENCOUNTER → 2022-06-19 09:10 | Outpatient (BNVA) | payer BC, MEDICAID, SELFPAY | PROVIDERS: PCP Nurse Practitioner; Visit Provider Nurse Practitioner | DX: E11.65 Type 2 diabetes mellitus with hyperglycemia (principal); A04.72 Enterocolitis due to Clostridium difficile, not specified as recurrent; Z98.890 Other specified postprocedural states | CPT/HCPCS: 83630; 87493; 87506 ==

== ENCOUNTER → 2022-09-17 13:56 | Outpatient (BNVA) | payer BC, MEDICAID, SELFPAY | PROVIDERS: PCP Nurse Practitioner; Visit Provider Nurse Practitioner | DX: E11.65 Type 2 diabetes mellitus with hyperglycemia (principal) | CPT/HCPCS: 80053; 80061; 81000; 82043; 83036; 85025 ==

== ENCOUNTER 2022-09-29 08:14 | Oncology outpatient (recurring) (ONCR) | payer BC, MEDICAID, SELFPAY | END 2022-10-14 23:59 | disposition home or self-care (01) | PROVIDERS: PCP Nurse Practitioner; Visit Provider Internal Medicine Medical Oncology | DX: Z53.9 Procedure and treatment not carried out, unspecified reason (principal) ==

== ENCOUNTER 2022-10-21 14:25 | Outpatient (CLI) | payer BC, MEDICAID, SELFPAY ==
--- NOTE | 2022-10-21 14:33 | XR_ITS ---
WS: [id number] SCREENING DEXA SCAN [employer] CLINICAL INFORMATION: ASYMPTOMATIC POSTMENOPAUSAL COMPARISON: None. FINDINGS: The L1-L4 bone mineral density measures 1.359 g/cm2. This corresponds to a T score score of 1.5 and Z score of 1.8. Left femoral neck bone mineral density measures 1.037 g/cm2. This corresponds to a T score of 0.2 and Z score of 0.5. Right femoral neck bone mineral density measures 1.070 g/cm2. This corresponds to a T score 0.5of and Z score of 0.8. Mean femoral neck bone mineral density measures 1.053 g/cm2. This corresponds to a T score of 0.4 and Z score of 0.6. XR/XR DEXA axial skeleton* [id number] IMPRESSION: Normal bone mineralization lumbar spine and femoral necks. Patient's FRAX calculated 10 year probability for major osteoporotic fracture i s 7.3 % and osteoporotic hip fracture is 1.0%.
== END 2022-10-21 14:26 | disposition home or self-care (01) ==
LOC: RAD 14:27
PROVIDERS: PCP Nurse Practitioner; Visit Provider Internal Medicine Medical Oncology
DX: Z13.820 Encounter for screening for osteoporosis (principal); Z78.0 Asymptomatic menopausal state
CPT/HCPCS: 77080

== ENCOUNTER → 2022-12-23 09:12 | Outpatient (BNVA) | payer BC, MEDICAID, SELFPAY | PROVIDERS: PCP Nurse Practitioner; Visit Provider Nurse Practitioner | DX: E11.65 Type 2 diabetes mellitus with hyperglycemia (principal); E55.9 Vitamin D deficiency, unspecified; C85.90 Non-Hodgkin lymphoma, unspecified, unspecified site; M19.011 Primary osteoarthritis, right shoulder; M79.661 Pain in right lower leg | CPT/HCPCS: 73030; 73590; 80053; 80061; 82306; 83036; 84443 ==

== ENCOUNTER → 2023-03-08 08:47 | Outpatient (BNVA) | payer BC, MEDICAID, SELFPAY | PROVIDERS: PCP Nurse Practitioner; Visit Provider Nurse Practitioner | DX: I10 Essential (primary) hypertension (principal); Z86.718 Personal history of other venous thrombosis and embolism; E78.5 Hyperlipidemia, unspecified; J44.9 Chronic obstructive pulmonary disease, unspecified; E11.65 Type 2 diabetes mellitus with hyperglycemia; E55.9 Vitamin D deficiency, unspecified; K21.9 Gastro-esophageal reflux disease without esophagitis | CPT/HCPCS: 80048; 85025 ==

== ENCOUNTER 2023-04-26 09:19 | Oncology outpatient (recurring) (ONCR) | payer BC, MEDICAID, SELFPAY ==
[2023-04-26 09:26] VITALS: BP 139/81; PULSE 87; RESP 16; TEMP 36; O2SAT 96
[2023-04-26 10:03] LABS: Basophils # 0.1 10^3/uL (0.0-0.1); Basophils % 1.1 %; Eosinophils # 0.1 10^3/uL (0.0-0.8); Eosinophils % 0.9 %; Hematocrit 42.7 % (36-47); Lymphocytes # 1.6 10^3/uL (0.8-4.8); Lymphocytes % 24.9 %; Mean Corpuscular HGB Conc 32.3 g/dL (30-55); Mean Corpuscular Volume 89.7 fl (85-98); Mean Platelet Volume 9.8 fL (7.4-10.4); Monocytes # 0.5 10^3/uL (0.2-0.9); Monocytes % 8.1 %; Neutrophils # 4.13 10^3/uL (1.8-7.7); Neutrophils % 64.7 %; Nucleated Red Blood Cells % 0 %; Platelet Count 230 10^3/cmm (157-399); Red Blood Count 4.76 10^6/uL (3.85-5.65); Red Cell Distribution Width 12.6 % (12.1-15.1); White Blood Count 6.39 10^3/uL (3.29-11.43)
[2023-04-26 11:38] LABS: Alanine Aminotransferase 10 U/L (0-33); Albumin Level 4.6 g/dL (3.5-5.2); Alkaline Phosphatase 124 U/L (35-105); Anion Gap 16.3 (5-19); Aspartate Amino Transferase 14 U/L (0-32); Blood Urea Nitrogen 11 mg/dL (8-23); Carbon Dioxide 25 mmol/L (22-29); Chloride 104 mmol/L (98-107); Globulin 2.5 g/dL (1.3-4.6); Glomerular Filtration Rate 72.4 mL/min (90-130); Glucose 104 mg/dL (65-115); Lactate Dehydrogenase 200 U/L (135-214); Osmolality Calculated 292 mOsm/kg (285-295); Potassium 4.3 mmol/L (3.5-5.1); Sodium 141 mmol/L (136-145); Total Bilirubin 0.4 mg/dL (0.15-1.2); Total Protein 7.1 g/dL (6.6-8.7)
== END 2023-05-16 23:59 | disposition home or self-care (01) ==
PROVIDERS: Nurse Practitioner Family; PCP Nurse Practitioner; Visit Provider Internal Medicine Medical Oncology
DX: C85.90 Non-Hodgkin lymphoma, unspecified, unspecified site (principal)
CPT/HCPCS: 36415; 80053; 83615; 85025

== ENCOUNTER → 2023-06-01 12:12 | Outpatient (BNVA) | payer BC, MEDICAID, SELFPAY | PROVIDERS: PCP Nurse Practitioner; Visit Provider Nurse Practitioner | DX: J44.9 Chronic obstructive pulmonary disease, unspecified (principal); I10 Essential (primary) hypertension; Z86.718 Personal history of other venous thrombosis and embolism; E11.65 Type 2 diabetes mellitus with hyperglycemia; M51.16 Intervertebral disc disorders with radiculopathy, lumbar region; E11.9 Type 2 diabetes mellitus without complications; E55.9 Vitamin D deficiency, unspecified; K21.9 Gastro-esophageal reflux disease without esophagitis; M51.36 Other intervertebral disc degeneration, lumbar region | CPT/HCPCS: 80053; 82306; 83036 ==

== ENCOUNTER 2023-08-30 09:36 | Outpatient (CLI) | payer BC, MEDICAID, SELFPAY | END 2023-08-30 09:37 | disposition home or self-care (01) | LOC: RAD 09:37 | PROVIDERS: PCP Nurse Practitioner; Visit Provider Internal Medicine Medical Oncology | DX: Z12.31 Encounter for screening mammogram for malignant neoplasm of breast (principal); R92.323 Mammographic fibroglandular density, bilateral breasts | CPT/HCPCS: 77063; 77067 ==

== ENCOUNTER → 2023-09-01 11:49 | Outpatient (BNVA) | payer BC, MEDICAID, SELFPAY | PROVIDERS: PCP Nurse Practitioner; Visit Provider Nurse Practitioner | DX: E11.9 Type 2 diabetes mellitus without complications | CPT/HCPCS: 80053; 80061; 81000; 82607; 83036 ==

== ENCOUNTER 2023-11-04 09:25 | Oncology outpatient (recurring) (ONCR) | payer BC, MEDICAID, SELFPAY ==
--- NOTE | 2023-08-30 09:30 | MM_ITS ---
WS: [id number] BILATERAL SCREENING DIGITAL TOMOSYNTHESIS MAMMOGRAM WITH CAD HISTORY: screening mammogram COMPARISON: 02/09/2019 and 11/16/2016 Bilateral CC and MLO views with tomosynthesis and synthetic mammography submitted. Computer aided det ection analyzed. Breast composition: There are scattered areas of fibroglandular density. No suspicious masses, microc alcifications or architectural distortion. MM/[place] [id number] IMPRESSION: BI-RADS: 1-Negative FOLLOW UP: 1 Year Follow-up
[2023-11-04 09:44] LABS: Basophils # 0.1 10^3/uL (0.0-0.1); Basophils % 0.7 %; Eosinophils # 0.1 10^3/uL (0.0-0.8); Eosinophils % 0.8 %; Hematocrit 41.2 % (36-47); Lymphocytes # 1.5 10^3/uL (0.8-4.8); Lymphocytes % 21.2 %; Mean Corpuscular HGB Conc 33.3 g/dL (30-55); Mean Corpuscular Volume 87.3 fl (85-98); Mean Platelet Volume 8.9 fL (7.4-10.4); Monocytes # 0.6 10^3/uL (0.2-0.9); Neutrophils # 4.83 10^3/uL (1.8-7.7); Nucleated Red Blood Cells % 0 %; Platelet Count 257 10^3/cmm (157-399); Red Blood Count 4.72 10^6/uL (3.85-5.65); Red Cell Distribution Width 13.1 % (12.1-15.1); White Blood Count 7.11 10^3/uL (3.29-11.43)
[2023-11-04 10:03] LABS: Alanine Aminotransferase 14 U/L (0-33); Albumin Level 4.3 g/dL (3.5-5.2); Alkaline Phosphatase 81 U/L (35-105); Anion Gap 15.1 (5-19); Aspartate Amino Transferase 18 U/L (0-32); Blood Urea Nitrogen 10 mg/dL (8-23); Calcium 9.2 mg/dL (8.5-10.5); Carbon Dioxide 24 mmol/L (22-29); Chloride 107 mmol/L (98-107); Globulin 2.7 g/dL (1.3-4.6); Glomerular Filtration Rate 72.2 mL/min (90-130); Glucose 138 mg/dL (65-115); Lactate Dehydrogenase 230 U/L (135-214); Osmolality Calculated 295 mOsm/kg (285-295); Potassium 4.1 mmol/L (3.5-5.1); Sodium 142 mmol/L (136-145); Total Bilirubin 0.5 mg/dL (0.15-1.2)
== END 2023-11-14 23:59 | disposition home or self-care (01) ==
PROVIDERS: Nurse Practitioner Family; PCP Nurse Practitioner; Visit Provider Internal Medicine Medical Oncology
DX: C83.30 Diffuse large B-cell lymphoma, unspecified site (principal)
CPT/HCPCS: 36415; 77063; 77067; 80053; 83615; 85025

== ENCOUNTER → 2023-12-09 10:52 | Outpatient (BNVA) | payer BC, MEDICAID, SELFPAY | PROVIDERS: PCP Nurse Practitioner; Visit Provider Nurse Practitioner | DX: E11.65 Type 2 diabetes mellitus with hyperglycemia | CPT/HCPCS: 80053; 80061; 82043; 82607; 83036 ==

== ENCOUNTER 2024-01-15 08:47 | Emergency (ER) | payer BC, MEDICAID, SELFPAY ==
[2024-01-15 08:49] VITALS: BP 134/67; PULSE 74; RESP 20; O2SAT 98; BMI 35.8
[2024-01-15] MEDS: ketorolac 30 mg/mL INJ IVP (09:11)
[2024-01-15] MEDS: dexamethasone 10 mg/mL INJ IM (09:11)
[2024-01-15] MEDS: orphenadrine 30 mg/mL Inj 2 mL 60 MG IM (09:13)
[2024-01-15 09:15] VITALS: TEMP 36.6
--- NOTE | 2024-01-15 09:24 | PC.NURSE ---
pt ambulatory to bathroom
--- NOTE | 2024-01-15 09:38 | CTR_ITS ---
PROCEDURE INFORMATION: Exam: CT Lumbar Spine Without Contrast Exam date and time: 01/15/2024 9:53 AM Age: 63 years old Clinical indication: Low back pain; Additional info: Back pain history of lymphoma TECHNIQUE: Imaging protocol: Computed tomography of the lumbar spine without contrast. Radiation optimization: All CT scans at this facility use at least one of these dose optimization techniques: automated exposure control; mA and/or kV adjustment per patient size (includes targeted exams where dose is matched to clinical indication); or iterative reconstruction. COMPARISON: No relevant prior studies available. RADIATION DOSE METRICS: Total DLP (mGy-cm): 836.66 FINDINGS: Bones/joints: Severe degenerative disease of bilateral sacroiliac joints, more on the side. No suspicious osseous lesion. No acute compression deformity. Demineralization of the visualized bones. Bilateral facet joint arthropathy at L3-L4, L4-L5 and L5-S1 levels, with mild anterolisthesis of L4 over L5. L1-L2, posterior osteophyte disc complex with bilateral facet joint arthropathy no significant thecal sac compression or neural foraminal narrowing. L2-L3, posterior osteophyte disc complex with bilateral facet joint arthropathy and ligamentum flavum hypertrophy causing moderate thecal sac compression and mild narrowing of both neural foramina. L3-L4, posterior osteophyte disc complex with bilateral facet joint arthropathy and ligamentum flavum hypertrophy with mild thecal sac compression and mild narrowing of both neural foramina. L4-L5: Posterior disc bulge with left paracentral to foraminal disc protrusion causing mild thecal sac compression moderate narrowing of the left and mild narrowing of the right neural foramen. L5-S1, there is right facet joint arthropathy and uncovertebral joint hypertrophy causing severe narrowing of the right foramen. Vasculature: Vascular calcifications. Soft tissues: Unremarkable. CT/CT lumbar spine wo con* [id number] IMPRESSION: 1. No suspicious osseous lesion. No acute compression deformity. 2. Multilevel degenerative of the lumbar spine.
--- NOTE | 2024-01-15 09:39 | ED_ITS ---
HPI - Extremity Problem General: Chief complaint: Extremity Injury, Lower Stated complaint: left leg pain Time Seen by Provider: 01/15/24 08:52 History of Present Illness: 63-year-old female presents emergency ro om complaining of low back pain radiating to her left leg. Has been going on for a week. She has used [id number] and prescription medications including muscle relaxers as needed.. She still has persistent pain. She has had epidural injections in the past no previous surgery. She has a history of lymphoma which was found to be in remission in 2016 2 years after initial diagnosis she is not currently getting any treatment since then. She still does follow-up with oncology. No fecal incontinence no urinary retention Associated symptoms: Deny chest pain, fever(s) or rash Related Data Previous Rx's Medication Instructions Recorded blood sugar diagnostic (OneTouch #50 ea 03/16/22 Ultra Test strips) blood-glucose meter (DefixoTouch #1 ea 03/16/22 Ultra2 Meter kit) lancets 33 gauge (OneTouch Delica #100 ea 03/16/22 Plus Lancet) epinephrine 0.3 mg/0.3 mL 0.3 mg (0.3 mL) IM Q4H PRN 09/17/22 injection, auto-injector (EpiPen anaphylaxis #2 ea 2-Brigido) guaifenesin 100 mg/5 mL oral 200 mg (10 mL) PO Q4H PRN cough 02/18/23 liquid (Adult Tussin Chest #473 mL Congestion) Disposable nebulizer circuit #1 ea 07/08/23 compressor, for nebulizer #1 ea 08/11/23 lidocaine 5 % topical patch 1 patch topical DAILY #30 ea 09/01/23 nebulizers #1 ea 09/06/23 oxycodone-acetaminophen 5 mg-325 1 tab PO TID PRN pain 7 days #21 11/04/23 mg tablet tabs albuterol sulfate 2.5 mg/3 mL 2.5 mg (3 mL) inhalation Q4H PRN 12/09/23 (0.083 %) solution for nebulization shortness of breath or wheezing #180 mL albuterol sulfate 90 mcg/actuation 2 puff inhalation QID PRN 12/09/23 aerosol inhaler Shortness Of Breath #8.5 grams amlodipine 10 mg tablet 10 mg PO DAILY #30 tabs 12/09/23 apixaban 5 mg tablet (Eliquis) 5 mg PO BID #60 tabs 12/09/23 budesonide-formoterol HFA 160 2 puff inhalation BID #10.2 grams 12/09/23 mcg-4.5 mcg/actuation aerosol inhaler (Symbicort) cholestyramine (with sugar) 4 gram 4 g PO BID #60 ea 12/09/23 powder for susp in a packet dulaglutide 1.5 mg/0.5 mL 1.5 mg (0.5 mL) SUBCUT .weekly #2 12/09/23 subcutaneous pen injector mL (Trulicity) duloxetine 20 mg capsule,delayed 20 mg PO BID #60 caps 12/09/23 release (Cymbalta) ergocalciferol (vitamin D2) 1,250 1,250 mcg PO .monthly #1 cap 12/09/23 mcg (50,000 unit) capsule ipratropium 0.5 mg-albuterol 3 mg 3 ml inhalation Q6H PRN shortness 12/09/23 (2.5 mg base)/3 mL nebulization of breath or wheezing #180 mL soln losartan 50 mg tablet 50 mg PO DAILY #30 tabs 12/09/23 oxybutynin chloride 5 mg tablet 5 mg PO DAILY #30 tabs 12/09/23 ondansetron 4 mg disintegrating 4 mg PO Q6H PRN nausea #30 tabs 01/04/24 tablet pantoprazole 40 mg tablet,delayed 40 mg PO DAILY #30 tabs 01/04/24 release (Protonix) tizanidine 4 mg tablet (Zanaflex) 4 mg PO Q8H PRN muscle spasticity 01/12/24 #30 tabs zonisamide 100 mg capsule 100 mg PO BID #60 caps 01/12/24 (Zonegran) diclofenac sodium 75 mg 75 mg PO Q12H PRN pain #20 tabs 01/15/24 tablet,delayed release hydrocodone 5 mg-acetaminophen 325 1 tab PO Q6H PRN pain #15 tabs 01/15/24 mg tablet prednisone 20 mg tablet 20 mg PO TID #15 tabs 01/15/24 Allergies Allergy/AdvReac Type Severity Reaction Status Date / Time bee venom protein (honey bee) Allergy ALGY-Anaphy Verified 01/13/24 09:26 laxis morphine Allergy ADR-Vomitin Verified 01/13/24 09:26 g Penicillins Allergy Unknown Verified 01/13/24 09:26 Review of Systems Const: Denies: fever(s) or chills Card: Denies: chest pain Resp: Denies: dyspnea GI: Denies: abdominal pain : Denies: dysuria, urinary frequency or urinary urgency Musc: Reports: back pain; Denies: neck pain Skin/Breast: Denies: rash PFSH ED PFSH: Medical History Vitamin D deficiency Osteopenia Melanoma in situ of back (2018) Diffuse large B cell lymphoma (2014) 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 difficile diarrhea 2008 and 2022 Acid reflux Obstructive sleep apnea History of DVT of lower extremity Right leg COPD (chronic obstructive pulmonary disease) DDD (degenerative disc disease), lumbar Diabetes mellitus with hyperglycemia, without long-term current use of insulin History of benign neoplasm of larynx Dyslipidemia HTN (hypertension) DVT (deep venous thrombosis) Surgical History History of vocal cord polypectomy History of melanoma excision (2018) Wide excision of melanoma in situ S/P colonoscopic polypectomy 2009 with polypectomy, 2014 with polypectomy, November 2020 with polypectomy History of left oophorectomy age 16 due to CA related to Oral contraceptive History of tonsillectomy S/P cholecystectomy Family History Family/Other CAD (coronary artery disease) Cancer Grandfather Cancer Lung disease Grandmother CAD (coronary artery disease) Diabetes Lung disease Father Cancer Other Hypertension Unknown if patient has history of cardiac disorders Denies family history of Clotting disorder Dementia Chronic kidney disease (CKD) Suicide Anesthesia complication Bleeding disorder Stroke Social History Smoking and tobacco/nicotine status: current every day tobacco/nicotine user cigarettes Packs smoked per day: 0.25 Years cigarettes smoked: 45 Quit status (tobacco/nicotine): has tried quititng Number of times tried to quit tobacco: 20 Alcohol intake: never Substance/Drug Use: former Date of last use: AMY Adopted: No Caregiver/support person: No Lives independently: Yes Household members: friend(s) Housing: House Marital status: Unknown Number of children: 0 service: No Current occupational status: retired Pets and animals: Yes Pets & animals: cat(s) and dog(s) Do you think of yourself as: Straight/Heterosexual Current gender identity: Female Physical Exam Const: GENERAL APPEARANCE: cooperative ORIENTATION/CONSCIOUSNESS: Yes awake, Yes oriented to person, Yes oriented to place and Yes oriented to time HENMT: COMMON NORMALS: normocephalic, atraumatic and hearing grossly normal bilaterally HEAD & SCALP: normocephalic and atraumatic Resp: COMMON NORMALS: normal respiratory effort, No retractions, No use of accessory muscles and clear to auscultation bilaterally AUSCULTATION: clear to auscultation bilaterally Cardio: COMMON NORMALS: regular rate, regular rhythm and No murmurs present (Cardio) RATE: regular rate RHYTHM: regular rhythm Extremity: COMMON NORMALS: normal to inspection, capillary refill normal, no clubbing, cyanosis or edema, no calf tenderness and no pedal edema Neuro: SENSORIUM/ORIENTATION: Yes oriented to person, Yes oriented to place and Yes oriented to time OTHER: Dorsum plantar kristen strength 5 of 5 neurovascular intact lower extremities Skin: COMMON NORMALS: no rashes or lesions noted GENERAL SKIN EXAM: no rashes or lesions noted Course Vital Signs: Vital signs: Vital Signs Temperature 97.8 F 01/15/24 09:15 Pulse Rate 86 01/15/24 11:26 Respiratory Rate 20 H 01/15/24 08:49 Blood Pressure 154/86 01/15/24 11:26 Pulse Oximetry 97 01/15/24 11:26 Oxygen Delivery Me thod Room Air 01/15/24 08:49 MDM - Extremity (Nontraumatic) Medical Decision Making Will discharge patient home with pain is improved discharge home she has muscle laxer at home to prednisone taper also diclofenac hydrocodone follow-up with primary care doctor return for worsening change symptoms. CT of the lumbar spine did not show any suspicious lesions any sign of compression fractures. Lab Data Radiology Impressions Lumbar Spine CT 01/15/24 09:38 IMPRESSION: 1. No suspicious osseous lesion. No acute compression deformity. 2. Multilevel degenerative of the lumbar spine. All radiology interpretation(s) finalized by discharge Discharge Plan Discharge Patient Disposition: Home Clinical Impression: Lumbar pain with radiation down left leg Condition: Stable Prescriptions: New hydrocodone-acetaminophen 5-325 mg tablet 1 tab PO Q6H PRN (Reason: pain) Qty: 15 0RF prednisone 20 mg tablet 20 mg PO TID Qty: 15 0RF Rx Instructions: 1 p.o. 3 times daily x3 days, 1 p.o. twice daily x2 days, 1 p.o. daily x2 days diclofenac sodium 75 mg tablet,delayed release (DR/EC) 75 mg PO Q12H PRN (Reason: pain) Qty: 20 0RF No Action (DME) OneTouch Ultra Test Strip See Rx Instructions .Route Qty: 50 5RF Rx Instructions: daily (DME) blood-glucose meter [DefixoTouch Ultra2 Meter] Kit See Rx Instructions .Route Qty: 1 0RF Rx Instructions: As directed (DME) lancets [OneTouch Delica Plus Lancet] 33 gauge misc See Rx Instructions .Route Qty: 100 5RF Rx Instructions: daily epinephrine [EpiPen 2-Brigido] 0.3 mg/0.3 mL auto-injector 0.3 mg IM Q4H PRN (Reason: anaphylaxis) Qty: 2 2RF oxycodone-acetaminophen 5-325 mg tablet 1 tab PO TID PRN (Reason: pain) 7 Days Qty: 21 0RF zonisamide [Zonegran] 100 mg capsule 100 mg PO BID Qty: 60 0RF tizanidine [Zanaflex] 4 mg tablet 4 mg PO Q8H PRN (Reason: muscle spasticity) Qty: 30 0RF lidocaine 5 % adhesive patch,medicated 1 patch topical DAILY Qty: 30 2RF Rx Instructions: leave on most painful area for up to 12 hrs albuterol sulfate 90 mcg/actuation HFA aerosol inhaler 2 puff INHALATION QID PRN (Reason: Shortness Of Breath) Qty: 8.5 5RF albuterol sulfate 2.5 mg /3 mL (0.083 %) solution for nebulization 2.5 mg inhalation Q4H PRN (Reason: shortness of breath or wheezing) Qty: 180 2RF amlodipine 10 mg tablet 10 mg PO DAILY Qty: 30 2RF Eliquis 5 mg tablet 5 mg PO BID Qty: 60 2RF budesonide-formoterol [Symbicort] 160-4.5 mcg/actuation HFA aerosol inhaler 2 puff inhalation BID Qty: 10.2 2RF cholestyramine (with sugar) 4 gram powder in packet 4 g PO BID Qty: 60 5RF Trulicity 1.5 mg/0.5 mL pen injector 1.5 mg SUBCUT .weekly Qty: 2 2RF duloxetine [Cymbalta] 20 mg capsule,delayed release(DR/EC) 20 mg PO BID Qty: 60 2RF ergocalciferol (vitamin D2) 1,250 mcg (50,000 unit) capsule 1,250 mcg PO .monthly Qty: 1 2RF ipratropium-albuterol 0.5 mg-3 mg(2.5 mg base)/3 mL solution for nebulization 3 ml inhalation Q6H PRN (Reason: shortness of breath or wheezing) Qty: 180 0RF losartan 50 mg tablet 50 mg PO DAILY Qty: 30 2RF oxybutynin chloride 5 mg tablet 5 mg PO DAILY Qty: 30 2RF guaifenesin [Adult Tussin Chest Congestion] 100 mg/5 mL liquid 200 mg PO Q4H PRN (Reason: cough) Qty: 473 0RF (DME) Disposable nebulizer circuit See Rx Instructions .ROUTE .MEDSUPPLY Qty: 1 2RF Rx Instructions: As directed (DME) compressor, for nebulizer Device See Rx Instructions .ROUTE .MEDSUPPLY Qty: 1 0RF Rx Instructions: As directed Q4 hours and/or prn (DME) nebulizers Misc See Rx Instructions .ROUTE .MEDSUPPLY Qty: 1 0RF Rx Instructions: use every 4 hours as needed ondansetron 4 mg tablet,disintegrating 4 mg PO Q6H PRN (Reason: nausea) Qty: 30 0RF pantoprazole [Protonix] 40 mg tablet,delayed release (DR/EC) 40 mg PO DAILY Qty: 30 2RF Rx Instructions: Probiotic and magnesium daily Discharge Orders: Discharge ED (Routine); Ordered 01/15/24 Ordered By: Jakub Womack Referrals: Fernando Benitez, [employer] [Primary Care Provider] - Patient Instructions: Lumbar Radiculopathy (ED), Opioid Safety, Pain Management Activity Restrictions/Additional Instructions: Thank you for choosing [facility] for your healthcare needs today. It is very important that you follow up as instructed or that you return to the Emergency Department should you have concerns or if your condition changes or worsens in any way. Follow-up with your primary care doctor within the next week. Coding Level of Care Code ED Stave Log Ripsaw Operator for Jeannette Vela
[2024-01-15 10:14] VITALS: BP 155/69; PULSE 81; O2SAT 96
[2024-01-15 11:26] VITALS: BP 154/86; PULSE 86; O2SAT 97
== END 2024-01-15 11:28 | disposition home or self-care (01) ==
PROVIDERS: Emergency Provider Family Medicine; PCP Nurse Practitioner
DX: M54.50 Low back pain, unspecified (principal); M79.605 Pain in left leg; Z79.01 Long term (current) use of anticoagulants; Z79.85 Long-term (current) use of injectable non-insulin antidiabetic drugs; F17.210 Nicotine dependence, cigarettes, uncomplicated; Z85.72 Personal history of non-Hodgkin lymphomas; J44.9 Chronic obstructive pulmonary disease, unspecified; E11.9 Type 2 diabetes mellitus without complications; E78.6 Lipoprotein deficiency; I10 Essential (primary) hypertension
CPT/HCPCS: 72131; 96372; 96374; 99285; J1100; J1885; J2360

== ENCOUNTER 2024-01-19 08:57 | Outpatient (CLI) | payer BC, MEDICAID, SELFPAY ==
--- NOTE | 2024-01-19 09:06 | XR_ITS ---
WS: [id number] Examination: XR lumbar spine 2-3V* [id number] Reason for Exam: M54.50 - Low back pain, unspecified Date: 01/19/2024 Comparison: No previous plain films are available for comparison Findings: The pedicles and the bone density are intact There is no dominant wedging or compression. There is subtle anterolisthesis at L3-4 and L4-5. Domina nt disc space narrowing at L4-5 and L5-S1 are noted. Spondylotic changes are present. There is anterior lipping. There is diffuse facet arthropathy. XR/XR lumbar spine 2-3V* [id number] Impression: There is no wedging There is subtle anterolisthesis at L3-4 and mild anterolisthesis at L4-5 with d iffuse degenerative changes as above.
== END 2024-01-19 08:58 | disposition home or self-care (01) ==
LOC: RAD 09:00
PROVIDERS: PCP Nurse Practitioner; Visit Provider Nurse Practitioner
DX: M48.061 Spinal stenosis, lumbar region without neurogenic claudication (principal); M47.896 Other spondylosis, lumbar region; M79.605 Pain in left leg
CPT/HCPCS: 72100

== ENCOUNTER 2024-02-29 10:06 | Outpatient (CLI) | payer BC, MEDICAID, SELFPAY ==
--- NOTE | 2024-02-29 10:15 | MR_ITS ---
WS: [id number] MRI LUMBAR SPINE NONCONTRAST TECHNIQUE: Sagittal T1, T2 and STIR imaging. Axial T1 and T2 imaging. CLINICAL INFORMATION: LUMBAR DEGENERAIVE DISC DISEASE COMPARISON: None. FINDINGS: Mild lumbar curve. No acute compression. Slight anterolisthesis L4 on L5. L1-L2: Mild annular bulging. Mild facet arthropathy. Spinal canal and foramen are patent. L2-L3: Mild annular bulging. Narrowing of the RIGHT subarticular recess. Mild central canal stenosis. Mild facet arthropathy. L3-L4: Mild annular bulging. Mild central canal stenosis. Moderate facet arthropathy with ligamentum flavum hypertrophy. Foramen are patent. L4-L5: Slight anterolisthesis. Shallow LEFT subarticular protrusion impinges the LEFT subarticular re cess. Far LEFT lateral foraminal protrusion slightly contacts the far exiting LEFT L4 nerve root. Mil d LEFT foraminal narrowing. RIGHT foramen is patent. Mild central canal stenosis. L5-S1: Mild annular bulging. Moderate facet arthropathy. RIGHT foraminal disc osteophyte complex impi nges the far exiting RIGHT L5 nerve root. Spinal canal and LEFT foramen are patent. Visualized pelvic bony structures: Normal. Paravertebral soft tissues: Normal. MR/MR lumbar spine wo con* [id number] IMPRESSION: 1. Mild central canal stenosis L2-L3 L3-L4 and L4-L5. 2. Impingement RIGHT L2-3 subarticular recess with a RIGHT paracentral protrus ion. 3. Tiny LEFT subarticular protrusion L4-5 impinges the traversing LEFT L5 nerv e root. 4. Far LEFT foraminal L4-5 protrusion impinges the far exiting LEFT L4 nerve r oot laterally. 5. RIGHT eccentric disc osteophyte protrusion L5-S1 impinges the exiting RIGHT L5 nerve root. 6. Moderate facet arthropathy L2-L3 L3-L4 L4-L5 and L5-S1
== END 2024-02-29 10:07 | disposition home or self-care (01) ==
LOC: RAD 10:06
PROVIDERS: PCP Nurse Practitioner; Visit Provider Internal Medicine
DX: M51.369 Other intervertebral disc degeneration, lumbar region without mention of lumbar back pain or lower extremity pain (principal); M54.16 Radiculopathy, lumbar region; M25.78 Osteophyte, vertebrae; M47.896 Other spondylosis, lumbar region
CPT/HCPCS: 72148

== ENCOUNTER → 2024-03-21 08:57 | Outpatient (BNVA) | payer BC, MEDICAID, SELFPAY | PROVIDERS: PCP Nurse Practitioner; Visit Provider Orthopaedic Surgery | DX: M54.50 Low back pain, unspecified (principal); M79.605 Pain in left leg | CPT/HCPCS: 72110 ==

== ENCOUNTER → 2024-07-11 10:05 | Outpatient (BNVA) | payer MEDICARE, BC, MEDICAID, SELFPAY | PROVIDERS: PCP Nurse Practitioner; Visit Provider Anesthesiology Pain Medicine | DX: M54.9 Dorsalgia, unspecified (principal); M51.16 Intervertebral disc disorders with radiculopathy, lumbar region | CPT/HCPCS: 99214 ==

== ENCOUNTER → 2024-07-19 10:36 | Outpatient (BNVA) | payer MEDICARE, BC, MEDICAID, SELFPAY | PROVIDERS: PCP Nurse Practitioner; Visit Provider Anesthesiology Pain Medicine | DX: M54.16 Radiculopathy, lumbar region (principal); Z01.818 Encounter for other preprocedural examination; E11.65 Type 2 diabetes mellitus with hyperglycemia; E11.9 Type 2 diabetes mellitus without complications; M54.50 Low back pain, unspecified; M79.605 Pain in left leg | CPT/HCPCS: 36416; 62323; 82962; J1010 ==

== ENCOUNTER → 2024-08-07 10:10 | Outpatient (BNVA) | payer MEDICARE, MEDICAID, SELFPAY | PROVIDERS: PCP Nurse Practitioner; Visit Provider Anesthesiology Pain Medicine | DX: M19.011 Primary osteoarthritis, right shoulder (principal); M54.9 Dorsalgia, unspecified; M51.16 Intervertebral disc disorders with radiculopathy, lumbar region; F17.210 Nicotine dependence, cigarettes, uncomplicated | CPT/HCPCS: 20610; 99214; J1010; J3490 ==

== ENCOUNTER → 2024-09-27 09:21 | Outpatient (BNVA) | payer MEDICARE, MEDICAID, SELFPAY | PROVIDERS: PCP Nurse Practitioner; Visit Provider Nurse Practitioner | DX: I10 Essential (primary) hypertension (principal); E78.5 Hyperlipidemia, unspecified; E11.65 Type 2 diabetes mellitus with hyperglycemia; E55.9 Vitamin D deficiency, unspecified | CPT/HCPCS: 80053; 80061; 82306; 82607; 83036; 83735; 84443 ==

== ENCOUNTER → 2024-10-18 09:24 | Outpatient (BNVA) | payer MEDICARE, MEDICAID, SELFPAY | PROVIDERS: PCP Nurse Practitioner; Visit Provider Nurse Practitioner | DX: N39.0 Urinary tract infection, site not specified (principal) | CPT/HCPCS: 81000 ==

== ENCOUNTER 2024-10-24 11:20 | Outpatient (CLI) | payer MEDICARE, MEDICAID, SELFPAY ==
--- NOTE | 2024-10-24 11:20 | MM_ITS ---
WS: [id number] BILATERAL 3D TOMOSYNTHESIS DIGITAL SCREENING MAMMOGRAPHY WITH CAD CLINICAL INFORMATION: SCREENING HISTORY: Screening mammogram. No current complaints. COMPARISON: 2023 TECHNIQUE: Bilateral CC and MLO views. FINDINGS: Scattered fibroglandular densities bilaterally. No suspicious focal mass, asymmetry, calcifications, or architectural distortion. No evidence of malignancy. MM/MM scr BI tomosynthesis [id number] IMPRESSION: DENSITY: There are scattered areas of fibroglandular density. BI-RADS: 1 - Negative. FOLLOW UP: 1 Year Follow-up Recommend return to annual screening mammography.
== END 2024-10-24 11:21 | disposition home or self-care (01) ==
LOC: MOBLMAM 11:22
PROVIDERS: PCP Internal Medicine; Visit Provider Internal Medicine
DX: Z12.31 Encounter for screening mammogram for malignant neoplasm of breast (principal); R92.323 Mammographic fibroglandular density, bilateral breasts
CPT/HCPCS: 77063; 77067

== ENCOUNTER → 2024-12-11 13:22 | Outpatient (BNVA) | payer MEDICARE, MEDICAID, SELFPAY | PROVIDERS: PCP Internal Medicine; Visit Provider Anesthesiology Pain Medicine | DX: M19.011 Primary osteoarthritis, right shoulder (principal); M54.50 Low back pain, unspecified; M79.605 Pain in left leg; M54.9 Dorsalgia, unspecified; M51.369 Other intervertebral disc degeneration, lumbar region without mention of lumbar back pain or lower extremity pain; M51.16 Intervertebral disc disorders with radiculopathy, lumbar region | CPT/HCPCS: 20610; 99214; J1010; J3490 ==

== ENCOUNTER → 2024-12-27 10:03 | Outpatient (BNVA) | payer MEDICARE, MEDICAID, SELFPAY | PROVIDERS: PCP Internal Medicine; Visit Provider Anesthesiology Pain Medicine | DX: M54.16 Radiculopathy, lumbar region (principal); E11.9 Type 2 diabetes mellitus without complications; Z01.818 Encounter for other preprocedural examination; M54.50 Low back pain, unspecified; M79.605 Pain in left leg; M54.9 Dorsalgia, unspecified | CPT/HCPCS: 36416; 62323; J1010; J9999 ==

== ENCOUNTER → 2025-01-08 13:09 | Outpatient (BNVA) | payer MEDICARE, MEDICAID, SELFPAY | PROVIDERS: PCP Internal Medicine; Visit Provider Clinical Nurse Specialist Adult Health | DX: N39.0 Urinary tract infection, site not specified (principal) | CPT/HCPCS: 81000; 87086 ==

== ENCOUNTER → 2025-01-10 09:59 | Outpatient (BNVA) | payer MEDICARE, MEDICAID, SELFPAY | PROVIDERS: PCP Internal Medicine; Visit Provider Anesthesiology Pain Medicine | DX: M19.011 Primary osteoarthritis, right shoulder (principal); M54.50 Low back pain, unspecified; M79.605 Pain in left leg; M54.9 Dorsalgia, unspecified; M51.369 Other intervertebral disc degeneration, lumbar region without mention of lumbar back pain or lower extremity pain; M51.16 Intervertebral disc disorders with radiculopathy, lumbar region | CPT/HCPCS: 20610; 99213; J1010; J3490 ==

== ENCOUNTER → 2025-02-12 10:31 | Outpatient (BNVA) | payer MEDICARE, MEDICAID, SELFPAY | PROVIDERS: PCP Internal Medicine; Visit Provider Anesthesiology Pain Medicine | DX: M54.50 Low back pain, unspecified (principal); M79.605 Pain in left leg; M54.9 Dorsalgia, unspecified; M51.369 Other intervertebral disc degeneration, lumbar region without mention of lumbar back pain or lower extremity pain | CPT/HCPCS: 99214 ==